=== PATIENT | female | born 1945 | race Caucasian/White ===

== ENCOUNTER → 2019-07-16 15:43 | Outpatient (POV) | payer MEDICARE, OTHER, SELFPAY | PROVIDERS: PCP Nurse Practitioner; Visit Provider Nurse Practitioner Family | DX: Z00.00 Encounter for general adult medical examination without abnormal findings (principal) ==

== ENCOUNTER → 2019-10-02 08:41 | Outpatient (CLI) | payer MEDICARE, OTHER, SELFPAY ==
--- NOTE | 2019-10-02 08:45 | US_ITS ---
PROCEDURE: US ABDOMEN LIMITED CLINICAL INDICATION: N/V RUQ PAIN COMPARISON: RUQ US RUQ-(ABD LTD)1ORGAN/QUAD/FU from 02/15/2017 FINDINGS: PANCREAS: Unremarkable. No obvious mass or abnormal fluid collection. No ductal dilatation a portion of the tail is obscured by bowel gas. LIVER: No focal liver lesions demonstrated. Homogeneous echogenicity. No intrahepatic biliary ductal dilatation evident. There is appropriate direction of blood flow within a non dilated portal vein RIGHT KIDNEY: The right kidney measures 9.5 x 3.7 by 5.2 cm and appears sonographically normal. GALLBLADDER: No gallstones, gallbladder wall thickening, pericholecystic fluid, or biliary dilatation. There is partial septation of the gallbladder near the neck. The common bile duct measures 4 mm. The patient is mildly tender over the right upper quadrant. IMPRESSION: Unremarkable limited abdominal ultrasound as detailed above Dictated by: Dr. Joe Gong MD 10/02/2019 10:[address] Joe Gong MD in [place] 10/02/2019 10:19
== END ==
PROVIDERS: PCP Nurse Practitioner; Visit Provider Nurse Practitioner
DX: R10.11 Right upper quadrant pain (principal); R11.2 Nausea with vomiting, unspecified
CPT/HCPCS: 76705

== ENCOUNTER → 2019-10-17 10:09 | Outpatient (CLI) | payer MEDICARE, OTHER, SELFPAY ==
--- NOTE | 2019-10-17 10:12 | NM_ITS ---
PROCEDURE: NM HEPATOBILIARY W PHARM CLINICAL INDICATION: RUQ PAIN Right upper quadrant pain COMPARISON: No exams were available for comparison TECHNIQUE: DOSE: 8.63 mCi technetium Choletec. 1.1 mcg CCK. No pain reported with CCK infusion. FINDINGS: Homogeneous activity is present within the hepatic parenchyma. Activity is present in the gallbladder by 10 minutes. Activity is present in the small bowel by 20 minutes. The gallbladder ejection fraction is calculated to be 9 percent. CCK-The patient did not report pain or other symptoms during CCK infusion. IMPRESSION: No evidence of common or cystic duct obstruction. Gallbladder ejection fraction is low at 9 percent. Dictated by: Sergio Rodriguez MD 10/18/2019 07:09 Electronically signed by Sergio Rodriguez MD in [place] 10/18/2019 07:09
== END ==
PROVIDERS: PCP Nurse Practitioner; Visit Provider Nurse Practitioner
DX: R10.11 Right upper quadrant pain (principal)
CPT/HCPCS: 78227; A9537; J2805

== ENCOUNTER → 2020-01-10 10:54 | Outpatient (CLI) | payer MEDICARE, OTHER, SELFPAY ==
--- NOTE | 2020-01-10 10:56 | XR_ITS ---
PROCEDURE: XR CHEST AP CLINICAL HISTORY: COUGH COMPARISON: XR CHEST 2V from 10/20/2019 FINDINGS: Mild cardiomegaly without failure. The lungs are clear without infiltrates, suspicious nodules, or pleural effusions. There is a nodular density noted in the left apex medially possibly related to a granuloma. IMPRESSION: Cardiomegaly, no acute finding. Left apical nodule possibly related to a granuloma Dictated by: Sergio Rodriguez MD 01/10/2020 12:35 Electronically signed by Sergio Rodriguez MD in [place] 01/10/2020 12:35
[2020-01-11 18:05] LABS: Covid-19 Nasal PCR Sendout Lex NOT DETECTED
--- NOTE | 2020-01-11 18:38 | PC.NURSE ---
Notified Dr Rojas and patient of negative covid results. Results faxed to [facility].
== END ==
PROVIDERS: Visit Provider Nurse Practitioner Family
DX: R06.02 Shortness of breath (principal); R05 Cough
CPT/HCPCS: 71045

== ENCOUNTER 2020-01-28 12:56 | Emergency (ER) | payer MEDICARE, OTHER, SELFPAY ==
[2020-01-28 12:57] VITALS: BP 154/97; PULSE 85; RESP 18; TEMP 36.8; O2SAT 96; BMI 19.1
--- NOTE | 2020-01-28 12:58 | ECG_ITS ---
APPROVED REPORT Exam: Resting ECG HR:79 bpm ECG Measurements Heart Rate 79 AXES NH 156 P 70 QRSd 78 QRS 32 QT 408 T 21 QTc 467 <Conclusion> Normal sinus rhythm Incomplete RBBB Possible Left atrial enlargement Nonspecific ST and T wave abnormality Abnormal ECG Electronically signed by : Wade Mar, 01/29/2020 14:32:39
--- NOTE | 2020-01-28 13:02 | XR_ITS ---
PROCEDURE: XR CHEST 2V CLINICAL HISTORY: shortness of breath COMPARISON: XR CHEST 2V from 10/20/2019 XR CHEST AP from 01/10/2020 FINDINGS: Mild cardiomegaly without failure. No lobar consolidation or collapse. There is a well-circumscribed 6 mm nodule in the left apex medially which may be due to a granuloma No acute bony abnormalities. IMPRESSION: No acute findings. Dictated by: Sergio Rodriguez MD 01/28/2020 13:37 Electronically signed by Sergio Rodriguez MD in [place] 01/28/2020 13:37
--- NOTE | 2020-01-28 13:06 | HMH.EDSOB ---
ED Disposition Clinical Impression: Anxiety Dyspnea Qualifiers: Dyspnea type: shortness of breath Qualified Code(s): R06.02 - Shortness of breath Disposition: Home, Self-Care Condition on Discharge: Good Instructions: DI for Shortness of Breath, DI for Anxiety -- Adult Referrals: Eros Rojas MD [Primary Care Provider] - 3 days - Critical Care Critical Care Time: No Attestation: On , the high probability of a clinically significant, sudden or life threatening deterioration of the following system(s) required my full and direct attention, intervention and personal management. The time I documented below is in addition to time spent performing reported procedures but includes the following listed in this critical care notation. Medical Decision Making - Medical Records Medical records reviewed: Yes: I reviewed the patient's medical records. - Cezar Inquiry Pt receiving controlled substance: No Vital Signs: 01/28/20 12:57 01/28/20 13:27 Temperature 98.3 F Temperature Source Oral Pulse Rate [Radial] 85 70 Respiratory Rate 18 20 Blood Pressure [Right Arm] 154/97 H 169/91 H Blood Pressure Mean [Right Arm] 116 117 Blood Pressure Source [Right Arm] Automatic Cuff Automatic Cuff Blood Pressure Position [Right Arm] Sitting Supine 02 Sat by Pulse Oximetry 96 95 Oxygen Delivery Method Room Air Room Air - Radiology Data #1 Image(s): Chest Image Reviewed: Yes I reviewed the patient's radiology results, Yes I reviewed the patient's radiology image Preliminary Findings: Normal/NAD - ECG Data Tracing #1 I reviewed this ECG and interpreted as documented below: EKG at 1258 shows a sinus rhythm with a rate of 79. No acute ST segment elevation or depression. No hyperacute T waves. Normal intervals. EKG interpreted by me. Medical Decision Narrative: Patient maintaining oxygen saturations of 99-100% on room air even with a mask on. No respiratory distress. Lung exam is clear with good air movement even at the bases. Chest x-ray shows no signs of pneumonia, pneumothorax, widened mediastinum or florid pulmonary edema. EKG shows no acute findings. No chest pain or hypoxia, very low pretest probability for PE. Discharged home to follow-up with primary care provider in 2 to 3 days for reevaluation. Anxiety could be a component here as well. Resp/SOB HPI - General Chief Complaint: Shortness of Breath/Dyspnea Stated Complaint: SOA Time Seen by Provider: 01/28/20 13:06 Mode of Arrival: Ambulatory Limitations: No Limitations Description of Symptoms (Recalled from ER Triage Doc. by RN): Shortness of breath for a couple of weeks. Denies fever - History of Present Illness This is a 74-year-old female with a past medical history significant for hypertension, hyperlipidemia, anxiety who presents to the emergency department feeling like she is short of breath. She is 99% on room air even with a mask on on my evaluation. She states she feels like she cannot get a deep breath and it has been ongoing for several weeks. She has been prescribed an anxiolytic by her primary care doctor and took one because she thought she might just be feeling anxious, but her symptoms are unchanged. No chest pain. No history of DVT/PE. No exacerbating or alleviating factors. No fevers or cough. Of note, she has a follow-up appointment with Dr. Chau tomorrow for a stress test. - Related Data Home Medications Medication Instructions Recorded Confirmed Omeprazole 20 mg PO DAILY 10/20/19 01/22/20 Ropinirole HCl 0.5 mg PO DAILY 10/20/19 01/22/20 estradioL [Estradiol] 1 patch TD DAILY 10/20/19 01/22/20 Timolol [Betimol] 5 ml OP DAILY 11/02/19 01/22/20 cycloSPORINE [Restasis] 1 each OP DAILY 11/02/19 01/22/20 amlodipine 5 mg-benazepril 10 mg 1 cap PO DAILY cap 01/22/20 01/22/20 capsule hydroxyzine HCl 25 mg tablet 25 mg PO QHS PRN 01/22/20 01/22/20 psyllium husk 0.4 gram capsule 0.4 g PO DAILY 01/22/20 01/22/20
--- NOTE | 2020-01-28 13:18 | PC.NURSE ---
pt went for xray
[2020-01-28 13:27] VITALS: BP 169/91; PULSE 70; RESP 20; O2SAT 95
[2020-01-28 14:09] VITALS: BP 147/85; PULSE 87; RESP 20; TEMP 36.8; O2SAT 98
== END 2020-01-28 14:10 | disposition home or self-care (01) ==
PROVIDERS: Emergency Provider Emergency Medicine; PCP Family Medicine
DX: F41.9 Anxiety disorder, unspecified (principal); I10 Essential (primary) hypertension; E78.5 Hyperlipidemia, unspecified; K21.9 Gastro-esophageal reflux disease without esophagitis; Z90.49 Acquired absence of other specified parts of digestive tract; Z79.899 Other long term (current) drug therapy
CPT/HCPCS: 71046; 93005; 99283

== ENCOUNTER → 2020-01-29 07:15 | Outpatient (CLI) | payer MEDICARE, OTHER, SELFPAY ==
--- NOTE | 2020-01-29 07:16 | CA_ITS ---
APPROVED REPORT Exam: Pharmacologic Technologist: Pallavi Segovia Ht: 5 ft 3 in Wt: 110 lbs BSA: 1.50 m2 HR: 74 bpm BP: 145/75 mmHg Indications: Shortness of Breath, Abnormal EKG Medical History Medications: Amlodipine,,,,, Omeprazole,,,,, Estradiol,,,,, Hydroxyzine,,,,, PSYLLIUM,,,,, Timolol,,,,, Cyclosporine,,,,, Stress Test Details Test: LEXISCAN HR Resting HR: 77 bpm Max Heart Rate (APMHR): 144 bpm Max HR Achieved: 101 bpm Target HR (85% APMHR): 122 bpm % of APMHR: 70 Recovery HR: 88 bpm BP Resting BP: 145.0/75.0 mmHg Max BP: 153.0/78.0 mmHg Recovery BP: 148.0/75.0 mmHg ECG Clinical Exercise duration: 04:16 min Highest Stage Achieved: Exercise capacity: 1.0 METs Stress ECG Conclusion Resting ECG: Sinus rhythm Lexiscan portion completed. Patient denied any complaints during peak infusion. Symptoms: No chest pain. No shortness of breath. No nausea or vomiting. Arrhythmias/Ectopy: Occasional PAC ST-T Changes: Less than 1.[address] depression. Conclusion: Images to follow. Test Summary REST 07:53 . . 77 . 145/ 75 . . Stage 1 . . . . . . . Myoview Injected Stage 1 01:00 . . 101 . . . . Stage 2 01:00 . . 100 . . . . Stage 3 01:00 . . 96 . 153/ 78 . . Stage 4 01:00 . . 95 . 143/ 77 . . Stage 4 01:16 . . 95 . 139/ 72 . Stop exercise at 04:16 RECOVERY 01:00 . . 95 . 126/ 68 . . RECOVERY 02:00 . . 90 . 126/ 68 . . RECOVERY 03:00 . . 91 . 153/ 75 . . RECOVERY 03:46 . . 88 . 148/ 75 . . Electronically signed by : Han Sanders, 01/29/2020 20:36:40
--- NOTE | 2020-01-29 07:16 | CA_ITS ---
APPROVED REPORT EXAM: Comprehensive 2D, Doppler, and color-flow Echocardiogram Patient Transition Specialist: Bonita Caraballo RVT Ht: 5 ft 3 in Wt: 109lbs BSA: 1.49 BP: 128/85 mmHg Indications: Shortness of Breath, Hypertension,Abn EKG,Tachycardia,CROSS 2D Dimensions LVOT 1.39 cm (M/F) 1.5-2.5 M-Mode Dimensions RVDd 1.60 cm (0.9-2.6) LVDd 4.67 cm (3.5-5.7) LVDs 3.52 cm (3.5-5.7) IVSd 1.12 cm (0.6-1.1) PWd 0.69 cm (0.6-1.1) EF (Teich) 48.80% FS 24.60% EDV (Teich) 100.80 mL ESV (Teich) 51.60 mL LV Diastology E/A Ratio 0.61 Mitral Valve MV A Velocity 89.00 (40-130 cm/s) Left Ventricle Left atrium is mildly enlarged, left ventricle is normal size, mild concentric left ventricular hypertrophy, visually estimated ejection fraction 55 to 60% with no regional wall motion abnormality, grade 1 diastolic dysfunction seen without tissue Doppler evidence of raise left atrial pressure. Right Ventricle Right atrium and right ventricular normal size and contractility. Aortic Valve Aortic valve is minimally thickened and fibrosed, there is no aortic stenosis or aortic insufficiency. Mitral Valve Mitral valve leaflets are minimally thickened, there is mild to moderate mitral regurgitation. Tricuspid Valve Tricuspid valve grossly normal, there is mild tricuspid regurgitation, tricuspid regurgitation jet velocity is inadequate for calculation of the right ventricular systolic pressure. Pulmonic Valve Pulmonic valve is poorly visualized. Great Vessels Aortic root is normal size. Pericardium No significant pericardial effusion noted. Conclusion 1. Normal left ventricular size, mild concentric left ventricular hypertrophy, visually estimated ejection fraction 55% with no regional wall motion abnormality, grade 1 diastolic dysfunction seen without tissue Doppler evidence of raise left atrial pressure. 2. Mild to moderate mitral and mild tricuspid regurgitation. 3. No significant pericardial effusion noted. Electronically signed by : Han Sanders, 01/29/2020 20:51:52
--- NOTE | 2020-01-29 07:16 | NM_ITS ---
APPROVED REPORT Exam: Nuclear Stress Test Indication: htn, sob, palpitations, fatigue Patient Location: Outpatient Stress Tech: Pallavi Segovia IN Tech:Joyce CarrilloWILLIAMS RT(R)(N) Ht: 5 ft 3 in Wt: 110 lbs Bra Size: b HR: 74 bpm BP: 145/75 mmHg BSA: 1.50 m2 BMI: 19.4 History: htn, sob, palpitations, fatigue Procedure: Patient received a 0.4 mg of intravenous Lexiscan, resting heart rate 74 bpm, resting blood pressure 145/75 mmHg, with Lexiscan maximum heart rate achived was 99 bpm which is Less than 85 % of the maximum predicted heart rate and blood pressure was 153/78 mmHg. With Lexiscan, patient denied any complaint of chest pain. Electrocardiogram Resting electrocardiogram shows sinus rhythm, with Lexiscan there is less than 1.[address] segment depression noted from the baseline EKG. The EKG portion of the Lexiscan Myoview is nondiagnostic. Cardiac Stress and Resting SPECT Images: Cardiac Stress and Resting SPECT images were obtained using technetium 99m Myoview 32.5 mCi stress and 10.52 mCi at rest. Gated SPECT for analysis of segmental wall motion and calculation of the ejection fraction also done. Cardiac stress and resting SPECT images show uniform myocardial activity without segmental perfusion abnormality, computer derived ejection fraction is over 65% with no regional wall motion abnormality, right ventricle is normal size and contractility. Conclusion: 1. The EKG portion of the Lexiscan Myoview is nondiagnostic. 2. No scintigraphic evidence of reversible ischemia seen, computer derived ejection fraction is over 65% with no regional wall motion abnormality, right ventricle is normal size and contractility. 3. Normal Lexiscan Myoview study. Electronically signed by : Han Sanders, 01/29/2020 20:38:40
--- NOTE | 2020-01-29 09:41 | HMH.ITSHM ---
Current Home Medications as stated by this patient Zoraida Palafox or pharmaceutical specialty representative. ropinrole, estradiol, miralax, omeprazole, inhaler, alprazolam
== END ==
PROVIDERS: PCP Nurse Practitioner; Visit Provider Urology
DX: F41.9 Anxiety disorder, unspecified (principal); R00.0 Tachycardia, unspecified; R06.02 Shortness of breath; R94.31 Abnormal electrocardiogram [ECG] [EKG]
CPT/HCPCS: 78452; 93017; 93306; A9502; J2785

== ENCOUNTER → 2020-02-01 12:59 | Outpatient (CLI) | payer MEDICARE, OTHER, SELFPAY ==
--- NOTE | 2020-02-01 13:48 | CT_ITS ---
PROCEDURE: CT CHEST WO CON CLINICAL INDICATION: SOB Shortness of breath, shortness of air COMPARISON: CT ABDOMEN PELVIS W CON from 10/20/2019 XR CHEST 2V from 01/28/2020 TECHNIQUE: Axial images obtained with sagittal and coronal reformats. All CT scans at the facility use one or more dose reduction, viz: automated exposure control, ma/kV adjustment per patient size (including targeted exams where dose is matched to indication, i.e. head), or iterative reconstruction technique. FINDINGS: HEART AND MEDIASTINAL STRUCTURES: There is mild tortuosity/ectasia of the ascending aorta. Normal heart size. There is minimal thickening of the pericardium. No mediastinal or hilar mass. There are few small mediastinal lymph nodes but no dominant adenopathy. There is mild thickening of the distal esophagus nonspecific but could be seen with esophagitis. There are few calcified hilar nodes in some small paraesophageal calcified nodes inferiorly. LUNGS AND PLEURAL SPACES: There is an 8 mm left apical nodule. This may contain a small focus of calcification peripherally. Right apical pleural thickening is noted. There are a few scattered small 3-4 mm parenchymal and subpleural nodular opacities in both upper and lower lobes. These are nonspecific too small to categorize. No effusions or infiltrates. No central obstructing lesions. There is a subpleural 6 mm nodule in the right lower lobe posteriorly. BONY STRUCTURES: No acute bony abnormalities apparent. UPPER ABDOMEN: Unremarkable. ADDITIONAL FINDINGS: No other significant abnormalities. IMPRESSION: 1. There are scattered bilateral pulmonary nodules the largest in the left apex at 8 mm. These are nonspecific and may be infectious or inflammatory such is old granulomas. Cannot exclude the possibility of neoplasm/metastatic disease. Suggest 3 month follow-up without and with contrast. 2. Mild thickening of the distal esophagus which may be seen with soft guidance. Dictated by: Sergio Rodriguez MD 02/02/2020 09:37 Electronically signed by Sergio Rodriguez MD in [place] 02/02/2020 09:37
== END ==
PROVIDERS: PCP Family Medicine; Visit Provider Nurse Practitioner Family
DX: R06.02 Shortness of breath (principal)
CPT/HCPCS: 71250; 94060

== ENCOUNTER → 2020-05-20 10:27 | Outpatient (POV) | payer MEDICARE, OTHER, SELFPAY | PROVIDERS: Visit Provider Dermatology | DX: Z00.00 Encounter for general adult medical examination without abnormal findings (principal) ==

== ENCOUNTER → 2020-05-26 09:24 | Outpatient (CLI) | payer MEDICARE, OTHER, SELFPAY ==
--- NOTE | 2020-05-26 09:27 | CT_ITS ---
PROCEDURE: CT CHEST W CON CLINCAL INDICATION: PULMONARY NODULES Follow-up pulmonary nodules COMPARISON: CT CT CHEST WO CON from 02/01/2020 TECHNIQUE: IV Contrast: 75ml Optiray 350 Axial images obtained with sagittal and coronal reformats. All CT scans at the facility use one or more dose reduction, viz: automated exposure control, ma/kV adjustment per patient size (including targeted exams where dose is matched to indication, i.e. head), or iterative reconstruction technique. FINDINGS: HEART AND MEDIASTINAL STRUCTURES: No mediastinal or hilar mass or adenopathy. There is a small amount fluid in the pericardium along the heart base on the right and posteriorly. LUNGS AND PLEURAL SPACES: Left apical nodule measuring 8 mm is once again noted and not significantly changed. There is biapical pleural thickening which is unchanged. Scattered small subpleural and parenchymal nodules once again noted in both lungs not significantly changed. No lobar consolidation or collapse. No new nodules evident. BONY STRUCTURES: No acute bony abnormalities apparent. UPPER ABDOMEN: There is mild nonspecific thickening of the distal esophagus. ADDITIONAL FINDINGS: No other significant abnormalities. IMPRESSION: 1. Stable appearance of the chest with stable appearing pulmonary nodules. Annual follow-up recommended. 2. Other nonacute findings as described above. Dictated by: Sergio Rodriguez MD 05/27/2020 12:08 Sergio Rodriguez MD in [place] 05/27/2020 12:08
[2020-05-26 09:51] LABS: Blood Urea Nitrogen 10 mg/dl (7-17); Estimated Glomerular Filt Rate 70 ml/min (>60); GFR (African American) 84 ML/MIN (>60)
== END ==
PROVIDERS: PCP Nurse Practitioner Family; Visit Provider Nurse Practitioner Family
DX: R91.8 Other nonspecific abnormal finding of lung field (principal)
CPT/HCPCS: 36415; 71260; 82565; 84520; Q9967

== ENCOUNTER → 2020-06-03 08:59 | Outpatient (POV) | payer MEDICARE, OTHER, SELFPAY | PROVIDERS: Visit Provider Otolaryngology | DX: Z00.00 Encounter for general adult medical examination without abnormal findings (principal) ==

== ENCOUNTER → 2020-06-10 10:08 | Outpatient (POV) | payer MEDICARE, OTHER, SELFPAY | PROVIDERS: Visit Provider Dermatology | DX: Z00.00 Encounter for general adult medical examination without abnormal findings (principal) ==

== ENCOUNTER → 2020-07-21 13:26 | Outpatient (POV) | payer MEDICARE, OTHER, SELFPAY | PROVIDERS: Visit Provider Nurse Practitioner Family | DX: Z00.00 Encounter for general adult medical examination without abnormal findings (principal) ==

== ENCOUNTER → 2021-03-05 09:52 | Outpatient (CLI) | payer MEDICARE, OTHER, SELFPAY ==
--- NOTE | 2021-03-05 09:53 | CA_ITS ---
APPROVED REPORT EXAM: Comprehensive 2D, Doppler, and color-flow Echocardiogram [place] [employer] Machine Operator: Bonita Caraballo RVT Ht: 5 ft 3 in Wt: 119lbs BSA: 1.55 BP: 184/86 mmHg Indications: MURMUR,GERD,HTN,MILD-MOD MR 2D Dimensions LVOT 1.70 cm (M/F) 1.5-2.5 LA Volume 22.60 mL LA Volume Index 14.58 mL/m2 (M/F) 16-34 M-Mode Dimensions RVDd 2.19 cm (0.9-2.6) LA Diam 3.42 cm (1.9-4.0) LVDd 4.45 cm (3.5-5.7) Ao Diam 2.39 cm (2.0-3.7) LVDs 2.91 cm (3.5-5.7) IVSd 0.78 cm (0.6-1.1) PWd 0.47 cm (0.6-1.1) EF (Teich) 63.90% FS 34.60% EDV (Teich) 90.10 mL TAPSE 2.36 (<1.7) ESV (Teich) 32.50 mL LV Diastology E Decel Time 267.00 (160-240 msec) E/A Ratio 1.0 MED E' 8.90 (< 7 cm/sec) E'/MED E' Ratio 12.22 (>14) LAT E' 7.70 (<10 cm/sec) E/LAT E' Ratio 14.13 (>14) Mitral Valve MV E Max Giorgio. 109.00 (40-130 cm/s) MV A Velocity 113.00 (40-130 cm/s) E/A Ratio 0.96 MV Decel. Time 267.00 (160-240 ms) MV PHT 78.00 ms Pulmonary Valve PV Peak Velocity 80.00 (50-150 cm/s) Tricuspid Valve TR P. Velocity 321.00 cm/s RAP Estimate 10.00 mmHg RVSP 51.20 mmHg Left Ventricle Enlarged, left ventricle is normal size, mild concentric left ventricular hypertrophy, visually estimated ejection fraction 55% with no regional wall motion abnormality, grade 1 diastolic dysfunction seen without tissue Doppler evidence of raise left atrial pressure. Right Ventricle Right atrium and right ventricle are normal size and contractility. Aortic Valve Aortic valve is minimally thickened and calcified, there is no aortic stenosis or aortic insufficiency. Mitral Valve Mitral valve leaflets are minimally thickened, there is mild to moderate mitral regurgitation. Tricuspid Valve Tricuspid grossly normal, there is mild tricuspid regurgitation, tricuspid regurgitation jet velocity is inadequate for calculation of the right ventricular systolic pressure. Pulmonic Valve Pulmonic valve is poorly visualized. Great Vessels Aortic root is normal size. Pericardium No significant pericardial effusion noted. Conclusion 1. Mildly enlarged left atrium, normal left ventricular size, mild concentric left ventricular hypertrophy, visually estimated ejection fraction 55% with no regional wall motion abnormality, grade 1 diastolic dysfunction seen without tissue Doppler evidence of raise left atrial pressure. 2. Mild to moderate mitral and mild tricuspid regurgitation. 3. No significant pericardial effusion noted. Electronically signed by : Han Sanders, 03/05/2021 16:13:46
== END ==
PROVIDERS: PCP Nurse Practitioner Family; Visit Provider Nurse Practitioner Family
DX: I34.0 Nonrheumatic mitral (valve) insufficiency (principal)
CPT/HCPCS: 93306

== ENCOUNTER → 2021-09-10 09:22 | Outpatient (CLI) | payer MEDICARE, OTHER, SELFPAY | PROVIDERS: PCP Family Medicine; Visit Provider Nurse Practitioner | DX: U07.1 COVID-19 (principal) | CPT/HCPCS: C9803; U0003; U0005 ==

== ENCOUNTER 2021-09-18 08:55 | Outpatient (CLI) | payer MEDICARE, OTHER, SELFPAY ==
[2021-09-18] VITALS (9 sets, daily range): BP systolic 144–170; BP diastolic 68–89; PULSE 60–68; RESP 16–18; TEMP 36.5–36.9; O2SAT 97–100
== END 2021-09-18 11:45 | disposition home or self-care (01) ==
LOC: INF 08:56
PROVIDERS: PCP Family Medicine; Visit Provider Family Medicine
DX: U07.1 COVID-19 (principal); Z23 Encounter for immunization
CPT/HCPCS: 96365

== ENCOUNTER → 2022-08-06 10:13 | Outpatient (CLI) | payer MEDICARE, OTHER, SELFPAY ==
--- NOTE | 2022-08-06 10:16 | CT_ITS ---
FINAL REPORT TECHNIQUE: Axial CT images of the abdomen were obtained with IV contrast only. Coronal reformatted images were also obtained. This study was performed with techniques to keep radiation doses as low as reasonably achievable (ALARA). Individualized dose reduction techniques using automated exposure control or adjustment of mA and/or kV according to the patient''s size were employed. CLINICAL HISTORY: NAUSEA,DECREASED APPETITE FINDINGS: There is mild bibasilar atelectasis or scar. There is a less than 1 cm cyst in the posterior right hepatic lobe. The patient is status post cholecystectomy. There is no evidence of biliary ductal dilatation. There is wall thickening at the GE junction which is nonspecific. The pancreas appears normal. The spleen size is within normal limits. There is no evidence of renal mass or hydronephrosis. There is no evidence of adenopathy. No abnormal fluid collection is seen. No localized inflammatory processes identified. The appendix is normal. IMPRESSION: Nonspecific wall thickening at the GE junction. This could be further evaluated with upper endoscopy. He Reviewed, Interpreted and Dictated by Edison Mcgarry III, MD Transcribed by Aurelia Kim Authenticated and [facility]
== END ==
PROVIDERS: PCP Nurse Practitioner Family; Visit Provider Nurse Practitioner Family
DX: R11.0 Nausea (principal); R63.0 Anorexia
CPT/HCPCS: 74160; Q9967

== ENCOUNTER → 2023-03-24 17:35 | Outpatient (CLI) | payer MEDICARE, OTHER, SELFPAY ==
[2023-03-24 19:01] LABS: Adenovirus F 40/41, stool Not Detected (NotDetected); Astrovirus Not Detected (NotDetected); Campylobacter Not Detected (NotDetected); Clostridium Difficile A/B, PCR Not Detected (NotDetected); Cryptosporidium Not Detected (NotDetected); Cyclospora Cayetanesis Not Detected (NotDetected); Entamoeba histolytica Not Detected (NotDetected); Enteroaggregative E coli Not Detected (NotDetected); Enteropathogenic E coli Not Detected (NotDetected); Enterotoxigenic E coli Not Detected (NotDetected); Giardia lamblia Not Detected (NotDetected); Norovirus Not Detected (NotDetected); Plesimonas Shigalloides, PCR Not Detected (NotDetected); Rotavirus A Not Detected (NotDetected); Salmonella, PCR Not Detected (NotDetected); Sapovirus Not Detected (NotDetected); Shiga-like toxin E coli Not Detected (NotDetected); Shigella Enterovasive E coli Not Detected (NotDetected); Vibrio Cholerae Not Detected (NotDetected); Vibrio, PCR Not Detected (NotDetected); Yersinia Entercolitica, PCR Not Detected (NotDetected)
== END ==
PROVIDERS: PCP Nurse Practitioner Family; Visit Provider Nurse Practitioner Family
DX: R19.7 Diarrhea, unspecified (principal)
CPT/HCPCS: 87507

== ENCOUNTER → 2023-03-29 14:06 | Outpatient (POV) | payer MEDICARE, OTHER, SELFPAY | PROVIDERS: Visit Provider Dermatology | DX: Z00.00 Encounter for general adult medical examination without abnormal findings (principal) ==

== ENCOUNTER → 2023-05-10 14:00 | Outpatient (POV) | payer MEDICARE, OTHER, SELFPAY | PROVIDERS: Visit Provider Dermatology | DX: Z00.00 Encounter for general adult medical examination without abnormal findings (principal) ==

== ENCOUNTER 2023-12-06 09:08 | Outpatient (CLI) | payer MEDICARE, OTHER, SELFPAY ==
--- NOTE | 2023-12-06 09:13 | XR_ITS ---
FINAL REPORT TECHNIQUE: Bone mineral density was calculated of the lumbar spine and hip. CLINICAL HISTORY: OSTEOPENIA COMPARISON: None FINDINGS: Using L1-4, the bone mineral density of the spine is 0.905 g/cm2, corresponding to T-score of -1.3. Using the left hip, the bone mineral density of the femoral neck is 0.75 g/cm2, corresponding to a T-score of -0.9. Using the right hip, the bone mineral density of the femoral neck is 0.714 g/cm?, corresponding to a T-score of -1.2. NOTE: T-score: Standard deviation compared with peak bone mass of young adult mean. *Following the recommendations of the International Society of Bone densitometry, classification of hip BMD is based on the lower of two T-scores; total hip or femoral neck. IMPRESSION: Diminished bone mineral density of the lumbar spine and bilateral hips consistent with low bone density. Reviewed, Interpreted and Dictated by Edison Mcgarry III, MD Transcribed by Shanna Barnett Authenticated and [facility]
== END 2023-12-06 23:59 ==
PROVIDERS: PCP Nurse Practitioner Family; Visit Provider Obstetrics & Gynecology
DX: Z78.0 Asymptomatic menopausal state (principal); M85.89 Other specified disorders of bone density and structure, multiple sites; E28.319 Asymptomatic premature menopause
CPT/HCPCS: 77080

== ENCOUNTER 2024-04-17 12:45 | Outpatient (CLI) | payer MEDICARE, OTHER, SELFPAY ==
--- NOTE | 2024-04-17 12:45 | CA_ITS ---
APPROVED REPORT EXAM: Comprehensive 2D, Doppler, and color-flow Echocardiogram Enchilada Maker: Italia Hauser CRT Ht: 5 ft 3 in Wt: 136lbs BSA: 1.64 BP: 190/90 mmHg Indications: Peripheral Edema, Hypertension/HDD, mr 2D Dimensions Left Atrium 3.25 cm LA Volume 34.60 mL LVOT 1.78 cm (M/F) 1.5-2.5 LA Volume Index 21.10 mL/m2 (M/F) 16-34 EF AP4 65.60 % GL Strain -27.2 % M-Mode Dimensions RVDd 2.47 cm (0.9-2.6) LVDd 4.95 cm (3.5-5.7) Ao Diam 3.68 cm (2.0-3.7) LVDs 3.47 cm (3.5-5.7) IVSd 0.88 cm (0.6-1.1) PWd 0.59 cm (0.6-1.1) EF (Teich) 56.90% FS 29.90% EDV (Teich) 115.50 mL TAPSE 2.40 (<1.7) ESV (Teich) 49.80 mL LV Diastology E Decel Time 197 (160-240 msec) E/A Ratio 0.72 MED E' 9.9 (>= 7 cm/sec) MED A' 15.50 cm/s E'/MED E' Ratio 9.19 (<= 14) LAT E' 8.5 (>= 10 cm/sec) LAT A' 12.60 cm/s E/LAT E' Ratio 10.71 (<= 14) Aortic Valve AoV Peak Giorgio. 137.0 (50-130 cm/s) AO Peak GR. 7.50 mmHg Mitral Valve MV E Max Giorgio. 91.0 (40-130 cm/s) MV A Velocity 126.0 (40-130 cm/s) E/A Ratio 0.72 MV Decel. Time 197 (160-240 ms) Tricuspid Valve TR P. Velocity 342.00 cm/s RAP Estimate 10.00 mmHg RVSP 56.90 mmHg Left Ventricle The left ventricle is normal size. The left ventricular systolic function is normal. The left ventricular ejection fraction is within the normal range. There is increased LV wall thickness. There is normal LV segmental wall motion. Transmitral Doppler flow pattern suggests impaired LV relaxation. LVEF is 55%. Right Ventricle Right ventricle is mildly dilated. The right ventricular systolic function is normal. Atria The left atrium is mildly dilated. The right atrium is mildly dilated. There is no Doppler evidence of interatrial shunt. Aortic Valve The aortic valve is mildly thickened. There is no aortic valvular stenosis. No aortic regurgitation is present. Mitral Valve The mitral valve leaflets are mildly thickened. Mild mitral regurgitation. No evidence of mitral valve stenosis. Tricuspid Valve The tricuspid valve leaflets are thin and pliable. Mild tricuspid regurgitation. RVSP is 30-35 mmHg. Pulmonic Valve The pulmonary valve is normal in structure. Trace pulmonic regurgitation. Great Vessels The aortic root is normal in size. The ascending aorta is normal in size. IVC is normal in size and collapses >50% with inspiration. Pericardium There is no pericardial effusion. Other Information Study Quality: Fair Conclusion Normal biventricular systolic function. Mild RV dilation. Mild biatrial dilation. Mild MR, mild TR. RVSP is 30-35 mmHg. Electronically signed by : Nancy Morales MD 04/22/2024 01:33:06
== END 2024-04-17 23:59 | disposition home or self-care (01) ==
LOC: RT 12:45
PROVIDERS: PCP Nurse Practitioner Family; Visit Provider Internal Medicine
DX: I34.0 Nonrheumatic mitral (valve) insufficiency (principal)
CPT/HCPCS: 93306

== ENCOUNTER 2024-07-16 16:21 | Outpatient (CLI) | payer MEDICARE, OTHER, SELFPAY ==
[2024-07-16 16:35] LABS: Basophils % 0.6 % (0.1-2.0); Eosinophils # 0.1 K/mm3 (0.0-0.4); Eosinophils % 1.2 % (0.1-12.0); Hematocrit 37.1 % (37.0-47.0); Hemoglobin 14.6 g/dL (12.2-16.2); Lymphocytes # 1.3 K/mm3 (0.7-4.5); Lymphocytes % 18.5 % (10-50); Mean Corpuscular HGB Conc 39.4 g/dL (31.8-35.4); Mean Corpuscular Hemoglobin 36.6 pg (27.0-31.2); Mean Corpuscular Volume 92.9 fl (81-99); Mean Platelet Volume 9.2 fl (7.4-10.4); Monocytes # 0.4 K/mm3 (0.1-1.0); Monocytes % 5.5 % (1.7-9.3); Neutrophils # 5.2 K/mm3 (1.8-7.8); Neutrophils % 74.1 % (37.0-80.0); Platelet Count 279 K/mm3 (142-424); Red Blood Count 3.99 M/mm3 (4.20-5.40); Red Cell Distribution Width 13.8 % (11.5-17.5)
[2024-07-16 17:12] LABS: Albumin Level 4.6 g/dl (3.5-5.0); Chloride 102 mmol/L (98-107); Potassium 4.5 mmoL/L (3.5-5.1)
[2024-07-16 17:14] LABS: Alanine Aminotransferase 15 U/L (12-78); Aspartate Amino Transferase 25 U/L (14-36); Blood Urea Nitrogen 13 mg/dl (7-17); Carbon Dioxide 27 mmol/L (22.0-30.0); Estimated Glomerular Filt Rate 48 ml/min (>60); GFR (African American) 58 ML/MIN (>60)
[2024-07-16 17:15] LABS: Albumin/Globulin Ratio 1.4 (1.1-1.8); Alkaline Phosphatase 106 U/L (38-126); Bilirubin,Total 0.7 mg/dl (0.2-1.3); Globulin 3.2 g/dL (1.3-3.2); Glucose 116 mg/dl (74-100); Total Protein,Serum 7.8 g/dl (6.3-8.2)
[2024-07-16 17:27] LABS: Anion Gap 13.5 mEq/L (5-15); Sodium 138 mmol/L (136-145)
[2024-07-16 18:10] LABS: Vitamin B12 209 pg/mL (239-931)
[2024-07-17 03:32] LABS: Thyroid Stimulating Hormone 1.46 uIU/mL (0.465-4.68)
== END 2024-07-16 23:59 | disposition home or self-care (01) ==
LOC: LAB.DROPOF 16:24
PROVIDERS: PCP Nurse Practitioner Family; Visit Provider Nurse Practitioner Family
DX: R29.898 Other symptoms and signs involving the musculoskeletal system (principal); D64.9 Anemia, unspecified; R00.0 Tachycardia, unspecified; M62.838 Other muscle spasm; R53.83 Other fatigue
CPT/HCPCS: 80053; 82607; 82728; 83735; 84443; 85025

== ENCOUNTER 2024-07-23 12:29 | Outpatient (CLI) | payer MEDICARE, OTHER, SELFPAY | END 2024-07-23 23:59 | disposition home or self-care (01) | LOC: RT 12:30 | PROVIDERS: PCP Nurse Practitioner Family; Visit Provider Nurse Practitioner Family | DX: I73.9 Peripheral vascular disease, unspecified (principal) | CPT/HCPCS: 93925 ==

== ENCOUNTER 2024-09-14 09:49 | Outpatient (CLI) | payer MEDICARE, OTHER, SELFPAY ==
[2024-09-14 13:03] LABS: Albumin Level 4.3 g/dl (3.5-5.0); Chloride 105 mmol/L (98-107); Sodium 140 mmol/L (136-145)
[2024-09-14 13:04] LABS: Potassium 4.7 mmoL/L (3.5-5.1)
[2024-09-14 13:06] LABS: Alanine Aminotransferase 15 U/L (12-78); Albumin/Globulin Ratio 1.5 (1.1-1.8); Alkaline Phosphatase 88 U/L (38-126); Anion Gap 11.7 mEq/L (5-15); Aspartate Amino Transferase 26 U/L (14-36); Bilirubin,Total 0.6 mg/dl (0.2-1.3); Blood Urea Nitrogen 14 mg/dl (7-17); Carbon Dioxide 28 mmol/L (22.0-30.0); Estimated Glomerular Filt Rate 53 ml/min (>60); GFR (African American) 64 ML/MIN (>60); Globulin 2.8 g/dL (1.3-3.2); Total Protein,Serum 7.1 g/dl (6.3-8.2)
[2024-09-14 13:07] LABS: Calcium 9.9 mg/dl (8.4-10.2); Glucose 101 mg/dl (74-100); Magnesium 1.9 mg/dl (1.6-2.3)
[2024-09-14 14:44] LABS: Vitamin B12 > 1000 pg/mL (239-931)
== END 2024-09-14 23:59 | disposition home or self-care (01) ==
LOC: LAB.DROPOF 09-17 08:56
PROVIDERS: PCP Nurse Practitioner Family; Visit Provider Nurse Practitioner Family
DX: I10 Essential (primary) hypertension (principal); E53.8 Deficiency of other specified B group vitamins; M62.838 Other muscle spasm; L98.9 Disorder of the skin and subcutaneous tissue, unspecified
CPT/HCPCS: 80053; 82607; 83735; 86340

== ENCOUNTER 2024-09-17 13:59 | Outpatient (CLI) | payer MEDICARE, OTHER, SELFPAY | END 2024-09-17 23:59 | disposition home or self-care (01) | LOC: RAD 14:00 | PROVIDERS: PCP Nurse Practitioner Family; Visit Provider Nurse Practitioner Family | DX: Z12.31 Encounter for screening mammogram for malignant neoplasm of breast (principal) ==

== ENCOUNTER 2024-10-16 13:43 | Outpatient (CLI) | payer MEDICARE, OTHER, SELFPAY ==
--- NOTE | 2024-10-16 13:44 | MM_ITS ---
PROCEDURE INFORMATION: Exam: US Left Breast, Complete MG Left Diagnostic Breast Tomosynthesis Exam date and time: 10/16/2024 1:34 PM Age: 79 years old Clinical indication: Callback from screening mammogram for findings in the left breast. TECHNIQUE: Imaging protocol: Complete ultrasound of all four quadrants of the left breast and the retroareolar regions, including ultrasound of the axilla when performed. Left Diagnostic tomosynthesis and 2D mammography including computer-aided detection (CAD) when performed. Unilateral or bilateral exam. COMPARISON: 1. MG SCREENING CAS[facility]A MAMMOGRAM 08/21/2024 2:57 PM 2. MG SCREENING [facility] MAMMOGRAM 06/28/2023 2:22 PM FINDINGS: MAMMOGRAPHY: Breast composition: The breast is heterogeneously dense, which may obscure small masses. Breast mammogram findings: Magnification views of the left breast demonstrate linear calcifications measuring 3.6 cm in AP dimension in the upper inner quadrant of the left breast, posterior depth. These are indeterminate and stereotactic biopsy is recommended. Spot compression views of the retroareolar aspect of the left breast demonstrates nipple retraction without underlying mass, distortion, or other abnormality. ULTRASOUND: Breast ultrasound findings: Ultrasound of the left breast is performed. There are scattered cystic changes throughout the breast without suspicious mass, shadowing, or distortion. In the retroareolar aspect, there is no underlying mass to account for the nipple retraction. There is no adenopathy by size or morphologic criteria. IMPRESSION: 1. Indeterminate calcifications in the left upper inner quadrant, stereotactic biopsy is recommended. 2. Nipple retraction in the left breast with no underlying mass. Six-month follow-up diagnostic mammogram and ultrasound recommended. ASSESSMENT: BI-RADS Category 4: Suspicious.
== END 2024-10-16 23:59 | disposition home or self-care (01) ==
LOC: RAD 13:44
PROVIDERS: PCP Orthopaedic Surgery; Visit Provider Nurse Practitioner Family
DX: R92.8 Other abnormal and inconclusive findings on diagnostic imaging of breast (principal)
CPT/HCPCS: 76641; 77061; 77065; G0279

== ENCOUNTER 2024-11-23 08:23 | Outpatient (CLI) | payer MEDICARE, OTHER, SELFPAY ==
[2024-11-23] MEDS: ALPRAZolam 0.5MG TABLET 0.5 MG PO (09:00)
[2024-11-23] MEDS: HYDROCODONE/APAP 5/325 MG TABLET 1 TAB PO (09:09)
--- NOTE | 2024-11-23 09:29 | MM_ITS ---
PROCEDURE INFORMATION: Exam: MG Left Diagnostic Breast Tomosynthesis Exam date and time: 11/23/2024 9:30 AM Age: 79 years old Clinical indication: Patient recalled on the basis of a screening mammogram for further evaluation; Left breast; calcifications TECHNIQUE: Imaging protocol: Left Diagnostic tomosynthesis and 2D mammography including computer-aided detection (CAD) when performed. Unilateral or bilateral exam. COMPARISON: 1. MG MM DIG MAMM DX UNILAT LT CAD 10/16/2024 1:34 PM 2. MG SCREENING [facility] MAMMOGRAM 08/21/2024 2:57 PM FINDINGS: MAMMOGRAPHY: Breast composition: The breasts are heterogeneously dense, which may obscure small masses. Breast mammogram findings: Digital diagnostic spot compression views of the left breast do not demonstrate any focal mass or asymmetry. Again noted within the spot compression views are clustered indeterminate microcalcifications unchanged compared to magnification views performed proximally 1 month earlier. By report, biopsy was not done. IMPRESSION: Indeterminate calcifications in the left breast. Biopsy was not performed. In the absence of stereotactic biopsy the alternatives include surgical excision versus a six-month follow-up diagnostic left mammogram with magnification views to assess for any potential interval change. Given that the calcifications remain radiographically indeterminate, biopsy still remains the next step of choice. ASSESSMENT: BI-RADS Category 4: Suspicious.
== END 2024-11-23 23:59 | disposition home or self-care (01) ==
LOC: RAD 08:25
PROVIDERS: PCP Nurse Practitioner Family; Visit Provider Nurse Practitioner Family
DX: R92.8 Other abnormal and inconclusive findings on diagnostic imaging of breast (principal)
CPT/HCPCS: 77061; 77065; G0279

== ENCOUNTER 2024-12-24 11:48 | Outpatient (CLI) | payer MEDICARE, OTHER, SELFPAY ==
[2024-12-24 13:19] LABS: Basophils % 0.7 % (0.1-2.0); Eosinophils # 0.2 K/mm3 (0.0-0.4); Eosinophils % 4.3 % (0.1-12.0); Hematocrit 41.9 % (37.0-47.0); Hemoglobin 13.7 g/dL (12.2-16.2); Lymphocytes # 1.3 K/mm3 (0.7-4.5); Lymphocytes % 23.3 % (10-50); Mean Corpuscular HGB Conc 32.7 g/dL (31.8-35.4); Mean Corpuscular Hemoglobin 30.7 pg (27.0-31.2); Mean Corpuscular Volume 93.9 fl (81-99); Mean Platelet Volume 10.9 fl (7.4-10.4); Monocytes # 0.4 K/mm3 (0.1-1.0); Monocytes % 7.8 % (1.7-9.3); Neutrophils # 3.4 K/mm3 (1.8-7.8); Neutrophils % 63.7 % (37.0-80.0); Platelet Count 307 K/mm3 (142-424); Red Blood Count 4.46 M/mm3 (4.20-5.40); Red Cell Distribution Width 12.5 % (11.5-17.5); White Blood Count 5.4 K/mm3 (4.8-10.8)
[2024-12-24 13:52] LABS: Alanine Aminotransferase 25 U/L (12-78); Albumin Level 4.8 g/dl (3.5-5.0); Albumin/Globulin Ratio 1.6 (1.1-1.8); Alkaline Phosphatase 83 U/L (38-126); Anion Gap 7.6 mEq/L (5-15); Aspartate Amino Transferase 38 U/L (14-36); Bilirubin,Total 0.7 mg/dl (0.2-1.3); Blood Urea Nitrogen 13 mg/dl (7-17); Calcium 11.3 mg/dl (8.4-10.2); Carbon Dioxide 34 mmol/L (22.0-30.0); Chloride 103 mmol/L (98-107); Estimated Glomerular Filt Rate 53 ml/min (>60); GFR (African American) 64 ML/MIN (>60); Glucose 104 mg/dl (74-100); Potassium 4.6 mmoL/L (3.5-5.1); Sodium 140 mmol/L (136-145); Total Protein,Serum 7.8 g/dl (6.3-8.2)
[2024-12-25 15:41] LABS: Intact Parathyroid Hormone 31.9 pg/mL (7.5-53.5)
[2024-12-25 17:43] LABS: 25-OH Vitamin D, Total 32.1 ng/mL (30-100)
== END 2024-12-24 23:59 | disposition home or self-care (01) ==
LOC: LAB.DROPOF 12-25 13:15
PROVIDERS: PCP Nurse Practitioner Family; Visit Provider Nurse Practitioner Family
DX: Z01.818 Encounter for other preprocedural examination (principal); E83.52 Hypercalcemia
CPT/HCPCS: 80053; 82306; 83970; 85025

== ENCOUNTER 2025-01-01 16:17 | Outpatient (CLI) | payer MEDICARE, OTHER, SELFPAY | END 2025-01-01 23:59 | disposition home or self-care (01) | LOC: LAB.DROPOF 16:17 | PROVIDERS: PCP Nurse Practitioner Family; Visit Provider Nurse Practitioner Family | DX: E83.52 Hypercalcemia (principal) | CPT/HCPCS: 82330 ==

== ENCOUNTER 2025-04-01 16:58 | Outpatient (CLI) | payer MEDICARE, OTHER, SELFPAY ==
[2025-04-01 17:13] LABS: Basophils % 0.7 % (0.1-2.0); Eosinophils # 0.2 Kmm3 (0.0-0.4); Eosinophils % 3.1 % (0.1-12.0); Hematocrit 41.2 % (37.0-47.0); Hemoglobin 13.7 g/dL (12.2-16.2); Immature Granulocytes # 0.01 10^3uL; Immature Granulocytes % 0.2 %; Lymphocytes # 1.9 K/mm3 (0.7-4.5); Lymphocytes % 32.4 % (10-50); Mean Corpuscular HGB Conc 33.3 g/dL (31.8-35.4); Mean Corpuscular Hemoglobin 30.8 pg (27.0-31.2); Mean Corpuscular Volume 92.6 fl (81-99); Mean Platelet Volume 11.1 fl (7.4-10.4); Monocytes # 0.4 K/mm3 (0.1-1.0); Monocytes % 7.5 % (1.7-9.3); Neutrophils # 3.3 K/mm3 (1.8-7.8); Neutrophils % 56.1 % (37.0-80.0); Nucleated Red Blood Cells # 0 10^3/uL; Nucleated Red Blood Cells % 0 %; Platelet Count 303 K/mm3 (142-424); Red Blood Count 4.45 M/mm3 (4.20-5.40); Red Cell Distribution Width 12.7 % (11.5-17.5); Red Cell Distribution Width-SD 42.9 fL; White Blood Count 5.8 K/mm3 (4.8-10.8)
[2025-04-01 17:34] LABS: Albumin Level 4.8 g/dl (3.5-5.0); Chloride 100 mmol/L (98-107)
[2025-04-01 17:35] LABS: Potassium 4.6 mmoL/L (3.5-5.1); Sodium 139 mmol/L (136-145)
[2025-04-01 17:37] LABS: Blood Urea Nitrogen 15 mg/dl (7-17); Estimated Glomerular Filt Rate 53 ml/min (>60); GFR (African American) 64 ML/MIN (>60)
[2025-04-01 17:38] LABS: Alanine Aminotransferase 18 U/L (12-78); Albumin/Globulin Ratio 1.4 (1.1-1.8); Alkaline Phosphatase 105 U/L (38-126); Anion Gap 15.6 mEq/L (5-15); Aspartate Amino Transferase 31 U/L (14-36); Bilirubin,Total 0.6 mg/dl (0.2-1.3); Calcium 9.9 mg/dl (8.4-10.2); Carbon Dioxide 28 mmol/L (22.0-30.0); Globulin 3.4 g/dL (1.3-3.2); Glucose 103 mg/dl (74-100); Total Protein,Serum 8.2 g/dl (6.3-8.2)
== END 2025-04-01 23:59 | disposition home or self-care (01) ==
LOC: LAB.DROPOF 16:58
PROVIDERS: PCP Nurse Practitioner Family; Visit Provider Nurse Practitioner Family
DX: Z01.818 Encounter for other preprocedural examination (principal); R53.83 Other fatigue; H26.9 Unspecified cataract; R41.3 Other amnesia
CPT/HCPCS: 80053; 85025

== ENCOUNTER 2025-04-03 17:59 | Emergency (ER) | payer MEDICARE, OTHER, SELFPAY ==
[2025-04-03 18:43] VITALS: BP 195/99; PULSE 97; RESP 16; TEMP 36.8; O2SAT 97; BMI 24.6
--- NOTE | 2025-04-03 18:54 | ED_ITS ---
<Statement entered by Janeen Urbina MD - 04/03/25 21:29> I was consulted by the YOVANY, and we discussed the complexity of the problems being addressed. I approved the treatment and management plan for this patient's care in the emergency department, thus performing a substantive portion of the medical decision making. Janeen Urbina MD, IVY, FACEP Discharge Plan Disposition Patient Disposition: Home, Self-Care Prescriptions Prescriptions: No Action psyllium husk [Metamucil] 0.4 gram capsule 0.4 g PO DAILY timolol maleate 0.5 % gel forming solution 1 drp Eye-Both DAILY cyclosporine [Restasis] 0.05 % dropperette 1 drp ophthalmic (eye) Q12H ropinirole 0.5 mg tablet 0.5 mg PO DAILY 90 Days Qty: 90 1RF omeprazole 20 mg capsule,delayed release(DR/EC) 20 mg PO DAILY 90 Days Qty: 90 3RF buspirone 10 mg tablet 10 mg PO BID 90 Days Qty: 180 2RF amlodipine-benazepril 5-10 mg capsule 1 cap PO DAILY 90 Days Qty: 90 1RF Referrals Follow up/Referrals: Cyndi Franklin APRN [Primary Care Provider, Medical] - See instructions Activity Restrictions/Add. Instructions Additional Instructions/Restrictions: Today you were evaluated in the emergency department for elevated blood pressure. Take an additional dose of your blood pressure medication in the evenings. Please keep your follow-up appointment with your PCP Tuesday. Return to the ED for any worsening of condition Clinical Impressions Clinical Impression: Hypertension Instructions Patient Instructions: High Blood Pressure Print Language Print Language: Azeri Discharge ED Provider: Janeen Urbina General Adult HPI General Chief complaint: Recheck/Abnormal Lab/Rx Stated complaint: high blood pressure Time Seen by Provider: 04/03/25 18:53 Mode of Arrival: Ambulatory Source of Information: Patient Description of Symptoms (Recalled from ER Triage Doc. by RN): PT presents to the Ed for evaluation of high BP. PT stated she went to the [facility] clinic today and was advised to come to the ED for a BP of 193/99. PT stated she has been compliant with BP meds. Denies blood thinners. Denies heachache, visual changes. PT stated her face just feels flushed. History of Present Illness HPI narrative: patient is an 80-year-old female PMHx hypertension and anxiety. She presents to the ED today for complaints of asymptomatic hypertension. Patient states she went to her doctor's office today just to have her blood pressure checked and they advised her it was high and sent her to the ED. Related Data Home Medications ?Medication ?Instructions ?Recorded ?Confirmed psyllium husk 0.4 gram capsule 0.4 g PO DAILY 01/22/20 04/01/25 (Metamucil) cyclosporine 0.05 % eye drops in a 1 drp ophthalmic (e ye) Q12H 06/29/23 04/01/25 dropperette (Restasis) timolol maleate 0.5 % eye gel 1 drp Eye-Both DAILY 04/01/25 forming solution Previous Rx's ?Medication ?Instructions ?Recorded ropinirole 0.5 mg tablet 0.5 mg PO DAILY . 90 days #9 0 tabs 11/14/24 omeprazole 20 mg capsule,delayed 20 mg PO DAILY 90 day s #90 caps 11/26/24 release buspirone 10 mg tablet 10 mg PO BID 90 days #180 ta bs 01/01/25 amlodipine 5 mg-benazepril 10 mg 1 cap PO DAILY 90 day s #90 caps 01/14/25 capsule Allergies Allergy/AdvReac Type Severity Reaction Status Date / Time nitrofurantoin (From Allergy Unknown Verified 04/01/25 14:52 MACRODANTIN) Sulfa (Sulfonamide Allergy Verified 04/01/25 14:52 Antibiotics) TETRACYCLINES Allergy Unknown Uncoded 04/01/25 14:52 [facility] Disclaimer: The information contained in this section may have been updated after the patient was seen, as this information can be updated by other users. Medical History Skin cancer of face Cardiac murmur Mitral regurgitation Gastroesophageal reflux disease Sinus tachycardia Abnormal EKG Anxiety Surgical History Status post surgical removal of malignant neoplasm of skin Social History Smoking Status: Never smoker alcohol intake: never substance use type: other current occupational status: other Travel in the last 8 weeks?: Inside the [place] household members: spouse housing: house current occupational exposures/hazards: No caffeine: Yes Have you lived/traveled outside US in past 30 days?: No Contact w/someone who lives/traveled outside US past 30 days?: No Exposure to someone with infectious disease in past 14 days?: No Do you have a fever (greater than 100.4 F or 38 C)?: No Have you tested positive for COVID-19?: No Exposed to someone with COVID-19 in past 14 days?: No Do you have a sore throat?: No Do you have a cough?: No Do you have any weakness?: No Do you have any diarrhea?: No Are you experiencing any unusual bleeding?: No Do you have any muscle aches/pain?: No Do you have any abdominal pain?: No Are you experiencing loss of taste or smell?: No Other Medical History Have you received the Flu Vaccine for this season: No Have you received the Pneumonia Vaccine: No ROS Obtained: Yes Systems reviewed as appropriate & no additional complaints except as documented Physical Exam General General appearance: alert and in no apparent distress Head Head exam: atraumatic and normocephalic Eye Eye exam: Present normal appearance and PERRL ENT ENT exam: Present normal exam Neck Neck exam: Present normal inspection Chest Chest inspection: Present normal inspection and symmetric chest wall rise; Absent tenderness Respiratory Respiratory exam: Present normal lung sounds bilaterally Cardiovascular Cardiovascular exam: Present regular rate Abdominal Exam Abdominal exam: Present soft and normal bowel sounds; Absent tenderness Extremities Exam Extremities exam: Present normal inspection and full ROM Back Exam Back exam: Present normal inspection and full ROM Neurological Exam Neurological exam: Present alert and oriented X3 Psychiatric Psychiatric exam: Present normal affect and normal mood Skin Skin exam: Present warm and dry Medical Decision Making Medical Records Screening: Per USPSTF and CDC recommendations, given the prevalence of disease in our region, it is our hospital?s policy to screen for HIV and viral Hepatitis for all patients aged 18 and over and those with ongoing risk factors. Cezar Inquiry Pt receiving controlled substance: No Vital Signs: 04/03/25 18:43 04/03/25 19:00 04/03/25 19:22 Temperature 98.3 F 98 F Temperature Source Oral Oral Pulse Rate 83 Pulse Rate [Right] 97 H 79 Respiratory Rate 16 20 Blood Pressure 193/95 H Blood Pressure [Right Arm] 195/99 H 193/95 H Blood Pressure Mean [Right Arm] 131 127 Blood Pressure Source [Right Arm] Automatic Cuff Blood Pressure Position [Right Arm] Sitting 02 Sat by Pulse Oximetry 97 97 98 Oxygen Delivery Method Room Air Room Air 04/03/25 19:30 Temperature Temperature Source Pulse Rate 79 Pulse Rate [Right] Respiratory Rate Blood Pressure 179/87 H Blood Pressure [Right Arm] Blood Pressure Mean [Right Arm] Blood Pressure Source [Right Arm] Blood Pressure Position [Right Arm] 02 Sat by Pulse Oximetry 98 Oxygen Delivery Method Orders (Tests/Meds): ED MEDICATIONS Discontinued Medications Generic Name Dose Route Start Last Admin Trade Name Lia PRN Reason Stop Dose Admin Amlodipine Besylate 5 mg 04/03/25 19:00 04/03/25 19:15 Amlodipine 5mg Tablet PO 04/03/25 19:01 5 mg ONCE ONE Administration Lisinopril 10 mg 04/03/25 19:01 04/03/25 19:15 Lisinopril 10mg Tablet PO 04/03/25 19:02 10 mg ONCE ONE Administration Medical Decision Narrative: In summary, patient is an 80-year-old female PMHx hypertension and anxiety. She presents to the ED today for complaints of asymptomatic hypertension. Patient states she went to her doctor's office today just to have her blood pressure checked and they advised her it was high and sent her to the ED. Patient states she has not had any symptoms associated with high blood pressure. She states that she has been on the same blood pressure medication for over 10 years now, amlodipine and benazepril. She takes this once a day in the morning. She states that she has increased anxiety and usually has elevated blood pressure when arriving at a hospital or doctors office. She denies fever, chills, body aches, headache, visual disturbances, posterior neck pain, chest pain, shortness of breath, abdominal pain, nausea, vomiting, diarrhea. Upon initial evaluation she is alert, oriented and cooperative. Her systolic is 195. Her physical exam is unremarkable. I discussed with patient she is experiencing asymptomatic hypertension & would most likely benefit from an increase in her blood pressure medication or an additional dose in the evening. While patient was in the ED, we administered a additional dose of her blood pressure medication, her systolic blood pressure reduced to 179. Patient states she remains asymptomatic. She has not medication at home to do a twice daily dosing until Tuesday when she sees her PCP. We discussed use of her medications. We discussed return precautions to the ED and patient verbalized understanding. Critical Care Critical Care Time Critical Care Time: No
--- NOTE | 2025-04-03 18:56 | PC.NURSE ---
Provider at bed side.
[2025-04-03 19:00] VITALS: BP 193/95; PULSE 83; O2SAT 97
[2025-04-03] MEDS: LISINOPRIL 10MG TABLET 10 MG PO (19:15)
[2025-04-03] MEDS: AMLODIPINE 5MG TABLET 5 MG PO (19:15)
[2025-04-03 19:22] VITALS: BP 193/95; PULSE 79; RESP 20; TEMP 36.6; O2SAT 98
[2025-04-03 19:30] VITALS: BP 179/87; PULSE 79; O2SAT 98
[2025-04-03 19:53] VITALS: BP 173/89; PULSE 75; RESP 18; TEMP 36.6; O2SAT 100
== END 2025-04-03 19:54 | disposition home or self-care (01) ==
PROVIDERS: Emergency Provider Student in an Organized Health Care Education/Training Program; PCP Nurse Practitioner Family
DX: I10 Essential (primary) hypertension (principal)
CPT/HCPCS: 99283

== ENCOUNTER 2025-04-08 14:14 | Outpatient (CLI) | payer MEDICARE, OTHER, SELFPAY ==
[2025-04-08 16:56] LABS: Magnesium 1.9 mg/dl (1.6-2.3)
[2025-04-08 17:27] LABS: Thyroid Stimulating Hormone 1.30 uIU/mL (0.465-4.68)
[2025-04-08 18:07] LABS: Ferritin 43.8 ng/ml (11.1-264)
[2025-04-08 18:54] LABS: Vitamin B12 683 pg/mL (239-931)
== END 2025-04-08 23:59 | disposition home or self-care (01) ==
LOC: LAB.DROPOF 14:14
PROVIDERS: PCP Nurse Practitioner Family; Visit Provider Nurse Practitioner Family
DX: I10 Essential (primary) hypertension (principal); E53.8 Deficiency of other specified B group vitamins; D50.9 Iron deficiency anemia, unspecified
CPT/HCPCS: 82607; 82728; 83735; 84443

== ENCOUNTER 2025-04-11 10:28 | Outpatient (CLI) | payer MEDICARE, OTHER, SELFPAY ==
--- NOTE | 2025-04-11 10:45 | CA_ITS ---
FINAL REPORT CLINICAL HISTORY: HTN FINDINGS: Aorta velocity: 108 cm/sec Right kidney: 8.7 cm. No evidence of hydronephrosis or mass. Right intrarenal RI: 0.60 Right renal artery velocity: 162 cm/sec. Right RAR (Renal artery-Aortic Ratio): 1.5 Left Kidney: 9.1 cm. No evidence of hydronephrosis or mass. Left intrarenal RI: 0.60 Left renal artery velocity: 135 cm/sec. Left RAR (Renal Artery-Aortic Ratio): 1.3 IMPRESSION: No evidence of significant renal artery stenosis. CT angiogram or postcontrast MR angiogram would be more sensitive for evaluation of possible renal artery stenosis. Reviewed, Interpreted and Dictated by Meliton Andrew MD Transcribed by Aurelia Kim Authenticated and [facility]
== END 2025-04-11 23:59 | disposition home or self-care (01) ==
LOC: RT 10:29
PROVIDERS: PCP Nurse Practitioner Family; Visit Provider Nurse Practitioner Family
DX: I10 Essential (primary) hypertension (principal)
CPT/HCPCS: 93976

== ENCOUNTER 2025-04-17 14:19 | Outpatient (CLI) | payer MEDICARE, OTHER, SELFPAY ==
--- NOTE | 2025-04-17 14:21 | XR_ITS ---
FINAL REPORT CLINICAL HISTORY: acute cough FINDINGS: There are underlying emphysematous changes. No acute pulmonary density is present. No significant pleural effusion. There is no pneumothorax. The heart is normal in size. The mediastinum is unremarkable. IMPRESSION: Emphysema without acute process. Reviewed, Interpreted and Dictated by Joe Camacho MD Transcribed by Samia Herbert Authenticated and [facility]
[2025-04-17 17:04] LABS: Coronavirus 19, PCR Not Detected (NotDetected); Influenza A, PCR Not Detected (NotDetected); Influenza B, PCR Not Detected (NotDetected)
== END 2025-04-17 23:59 | disposition home or self-care (01) ==
LOC: RAD 14:20
PROVIDERS: PCP Nurse Practitioner Family; Visit Provider Nurse Practitioner Family
DX: J43.9 Emphysema, unspecified (principal)
CPT/HCPCS: 71046; 87631

== ENCOUNTER 2025-04-28 11:01 | Emergency (ER) | payer MEDICARE, OTHER, SELFPAY ==
[2025-04-28] VITALS (7 sets, daily range): BP systolic 132–175; BP diastolic 72–143; PULSE 71–77; RESP 10–20; TEMP 36.6–36.9; O2SAT 96–100; BMI 24.0
--- NOTE | 2025-04-28 11:07 | ECG_ITS ---
APPROVED REPORT Exam: Resting ECG HR:76 bpm ECG Measurements Heart Rate 76 AXES KS 161 P 64 QRSd 90 QRS 41 QT 380 T 25 QTc 411 Conclusion SINUS RHYTHM WITH OCCASIONAL VENTRICULAR PREMATURE COMPLEXES POSSIBLE LEFT ATRIAL ENLARGEMENT [-0.1mV P-WAVE IN V1/V2] MODERATE ST DEPRESSION [0.05+ mV ST DEPRESSION] ABNORMAL ECG UNCONFIRMED REPORT Electronically signed by : FIDEL POWER, 04/30/2025 03:51:52
--- OUTSIDE RECORDS SUMMARY | 2025-04-28 11:10 | XMS_ITS | Clinical Summary ---
Author Organization [facility] Address [address] [place] [address] Care Team Providers Care Case Manager Name Role Phone Cyndi Franklin JAGRUTI Primary Care Provider [phone] Allergies Active Allergy Reactions Criticality Noted Date Comments Nitrofurantoin Macrocrystal Nausea And Vomiting Low 08/06/2016 Sulfa Antibiotics Itching Low 08/06/2016 Tetracyclines & Related Nausea And Vomiting Low 01/2016 Medications timolol (TIMOPTIC-XR) 0.5 % ophthalmic gel-forming Administer 0.5 drops to both eyes As Needed. 6 Active amLODIPine-vane zepril (LOTREL 5-10) 5-10 MG per capsule Take 1 capsule by mouth Daily. 6 Active Multiple Vitamins-Minera ls (MULTIVITAL) tablet Take 1 tablet by mouth Daily. Active Calcium Carb-Cholecalci ferol (CALCIUM + D3) 600-200 MG-UNIT tablet Take 600 mg by mouth 2 (Two) Times a Day. Active RESTASIS 0.05 % ophthalmic emulsion 7 Active polyethylene glycol (MIRALAX) packet Take 17 g by mouth Daily. Active psyllium (METAMUCIL) 58.6 % packet Take 1 packet by mouth Daily. Active busPIRone (BUSPAR) 10 MG tablet Take 1 tablet by mouth 2 (Two) Times a Day. 0 Active rOPINIRole (REQUIP) 0.5 MG tablet TAKE ONE TABLET BY MOUTH EVERY NIGHT ONE HOUR BEFORE BED 90 tablet 3 0 Active omeprazole (priLOSEC) 20 MG capsule 2 Active ondansetron (ZOFRAN) 4 MG tablet 2 Active Active Problems Problem Noted Date Diagnosed Date History of hysterectomy 11/14/2023 Overview (11/14/2023): History of TVH and BSO by Dr. Mays in 1995. Estrogen replacement until 2021. Encounter for screening mamm ogram for malignant neoplasm of breast 11/14/2023 Overview (11/14/2023): Mammogram 06/28/[address] [facility]. Screening for colon cancer 11/14/2023 Overview (11/14/2023): Colonoscopy 2017? Dr. Eli. Told may not need another colonoscopy. Left breast cysts April 2020 Mamm & U/S Tom clini c 04/23/2020 Slow transit constipation 08/14/2019 GERD (gastroesophageal reflux disease) 7 Osteopenia 08/06/2016 Overview (12/08/2023): Last DEXA scan 2017? DEXA 12/06/2023 with mild osteopenia On calcium and vitamin D. RLS (restless legs syndrome) 08/06/2016 Family History Medical History Relation Name Comments Aneurysm Mother Relation Name Status Comments Mother Social History Tobacco Use Types Packs/Day Years Used Date Smoking Tobacco: Never Smokeless Tobacco: Never Tobacco Cessation:Counseling Given: Not Answered Alcohol Use Standard Drinks/Week Comments No 0 (1 standard drink = 0.6 oz pur e alcohol) Abuse Screen Answer Date Recorded Unsafe at Home or Work/School Not on file Feels Threatened by Someone? Not on file 06/2023 Does Anyone Keep You from Co ntacting Others or Doint Things Outside the Home? Not on file 07/11/2023 Physical Sign of Abuse Present Not on file 1 Housing Stability Answer Date Recorded Current Living Arrangements Not on file 06/2023 Potentially Unsafe Housing Conditions Not on aure e 07/11/2023 Family and Community Support Answer Slava e Recorded Help with Day-to-Day Activities Not on file 07/11/2023 Lonely or Isolated Not on file 07/11/2023 Employment Answer Date Recorded Do you want help finding or keeping work or a mavis b? Not on file 07/11/2023 Disabilities Answer Date Recorded Concentrating, Remembering, or Making Decisions Difficulty Not on file 07/11/2023 Doing Errands Independently Difficulty Not on fi le 07/11/2023 Education Answer Date Recorded Help with school or training? Not on file Preferred Language Not on file 07/11/2023 Comments No Sex and Gender Information Value Date Recorded Sex Assigned at Not on file Legal Sex Female 10:20 AM EDT Gender Identity Not on file Sexual Orientation Not on file Last Filed Vital Signs Vital Sign Reading Time Taken Comments Blood Pressure 162/90 11/14/2023 3:34 PM EST Pulse - - Temperature - - Respiratory Rate 16 08/19/2022 1:10 PM EST Oxygen Saturation - - Inhaled Oxygen Concentration - - Weight 60.4 kg (133 lb 3.2 oz) 11/14/2023 3:34 P M EST Height 160 cm (5' 2.99 ) 11/14/2023 3:34 PM EST Body Mass Index 23.6 11/14/2023 3:34 PM EST Plan of Treatment Health Maintenance Due Date Last Done Comments TDAP/TD VACCINES (1 - Tdap) 1962 COLOGUARD 1988 COLON CANCER SCREENING [address] COLONOGRAPHY 1988 FECAL OCCULT BLOOD TEST 1988 FIT Testing (1 year) 1988 Pneumococcal Vaccine 50+ (1 of 1 - PCV) 1993 ANNUAL WELLNESS VISIT 07/12/2016 RSV Vaccine - Adults (1 - 1- dose 75+ series) 2018 ZOSTER VACCINE (2 of 2) 12/22/2018 10/27/2018 COVID-19 Vaccine (3 - 2023-2 5 season) 2024 12/03/2020, 11/05/2020 MAMMOGRAM 06/28/2025 06/28/2023, 05/03, 04/30/2021, Additional history exists INFLUENZA VACCINE 07/03/2025 10/06/2023, , 07/20/2018, Additional history exists DXA SCAN 12/05/2025 12/06/2023, 05/30/2007 COLONOSCOPY 08/09/2027 08/09/2017 COLORECTAL CANCER SCREENING 08/09/2027 Procedures Procedure Name Priority Date/Time Associated Diagnosis Comments SCANNED - DEXA 12/06/2023 SCANNED - MAMMO 06/28/2023 SCANNED - COLONOSCOPY 08/09/2017 from Last 3 Months or Most Recently Relevant to Health Maintenance Results * DEXA Scan (12/06/2023) Anatomical Region Laterality Modality Other us Sam De La Garza MD CHART REVIEW TABS Final Result * SCANNED - MAMMO (06/28/2023) Anatomical Region Laterality Modality Other us Siobhanjuan luis Becker APRN CHART REVIEW TABS F inal Result * SCANNED - COLONOSCOPY (08/09/2017) Meliton Mays MD CHART REVIEW TABS Final Resul t from Last 3 Months or Most Recently Relevant to Health Maintenance Insurance MEDICARE A & B Care Teams Case Manager Relationship Specialty Start Date End Date Cyndi Franklin APRN [address] [place] [address] PCP - General Internal Medicine 08/22/23
--- OUTSIDE RECORDS SUMMARY | 2025-04-28 11:10 | XMS_ITS | Encounter Summary ---
Author Organization [facility] Address [address] [place] [id number] Care Team Providers Care Criminal Intelligence Specialist Name Role Phone Cyndi Franklin APRN Primary Care Provider [phone] Reason for Visit * Reason Comments Med Refill Encounter Details Date Type Department Care Team (Late st Contact Info) Description 08/28/2021 Refill [facility] GYNECOLOGY [address] [facility] [address] [place] [phone] Kassie Reis APRN Social History Tobacco Use Types Packs/Day Years Used Date Smoking Tobacco: Never Smokeless Tobacco: Never Alcohol Use Standard Drinks/Week Comments No 0 (1 standard drink = 0.6 oz pur e alcohol) Comments No Sex and Gender Information Value Date Recorded Sex Assigned at Not on file Legal Sex Female 10:20 AM EDT Gender Identity Not on file Sexual Orientation Not on file documented as of this encounter Plan of Treatment Not on file documented as of this encounter Visit Diagnoses Not on filedocumented in this encounter Care Teams Criminal Intelligence Specialist Relationship Specialty Start Date End Date Cyndi Franklin APRN [address] [place] [address] PCP - General Internal Medicine 08/22/23 documented as of this encounter
--- NOTE | 2025-04-28 11:19 | CT_ITS ---
PROCEDURE INFORMATION: Exam: CTA Chest With Contrast Exam date and time: 04/28/2025 11:50 AM Age: 80 years old Clinical indication: Shortness of breath; Additional info: Subacute SOA and cough TECHNIQUE: Imaging protocol: Computed tomographic angiography of the chest with contrast. Exam focused on the arteries. 3D rendering (Not supervised by radiologist): MIP and/or 3D reconstructed images were created by the technologist. Radiation optimization: All CT scans at this facility use at least one of these dose optimization techniques: automated exposure control; mA and/or kV adjustment per patient size (includes targeted exams where dose is matched to clinical indication); or iterative reconstruction. Contrast material: ISOVUE; Contrast volume: 70 ml; Contrast route: INTRAVENOUS (IV); COMPARISON: CT CHEST W CON 05/26/2020 11:17 AM FINDINGS: Pulmonary arteries: Negative for acute pulmonary embolism. Aorta: Unremarkable. No aortic aneurysm. No aortic dissection. Lungs: Noncalcified pulmonary nodule within the lateral right upper lobe measures 3 mm (series 7, image 51). No focal consolidation. Mild bibasilar atelectasis. Pleural spaces: Biapical pleural thickening. No pleural effusion or pneumothorax. Heart: Unremarkable. No cardiomegaly. No pericardial effusion. Lymph nodes: Unremarkable. No enlarged lymph nodes. Bones/joints: Unremarkable. No acute fracture. Soft tissues: Unremarkable. Other findings: Previous granulomatous exposure. IMPRESSION: 1. Negative for acute pulmonary embolism. 2. 3 mm pulmonary nodule right upper lobe. Recommend follow-up as indicated. FLEISCHNER CRITERIA FOR MANAGEMENT OF PULMONARY NODULES Low Risk Patients: <6mm, no follow-up 6-8mm, 6-12 month follow-up >8mm, CT @ 3, months, PET/CT or biopsy High Risk Patients: <6mm, follow-up 12 months 6-8mm, 6-12 month then 18-24 month follow-up >8mm, same as for low risk References: Mitul H, et al. Guidelines for Management of Incidental Pulmonary Nodules Detected on CT Images: From the Fleischner Society 2017. Radiology. 2017;284(1):228-243.
--- NOTE | 2025-04-28 11:20 | ED_ITS ---
Discharge Plan Disposition Patient Disposition: Home, Self-Care Condition: Fair Prescriptions Prescriptions: No Action psyllium husk [Metamucil] 0.4 gram capsule 0.4 g PO DAILY timolol maleate 0.5 % gel forming solution 1 drp Eye-Both DAILY cyclosporine [Restasis] 0.05 % dropperette 1 drp ophthalmic (eye) Q12H amlodipine-benazepril 5-10 mg capsule 1 cap PO BID Qty: 180 1RF metoprolol succinate [Toprol XL] 25 mg tablet extended release 24 hr 25 mg PO DAILY Qty: 30 5RF Eliquis 2.5 mg tablet 2.5 mg PO BID Qty: 60 5RF omeprazole 20 mg capsule,delayed release(DR/EC) 20 mg PO DAILY 90 Days Qty: 90 3RF buspirone 10 mg tablet 10 mg PO BID 90 Days Qty: 180 2RF ropinirole 0.5 mg tablet See Rx Instructions .ROUTE .COMPLEX Qty: 90 0RF Dose Instruction: TAKE 1 TABLET BY MOUTH DAILY Rx Instructions: TAKE 1 TABLET BY MOUTH DAILY albuterol sulfate [Ventolin HFA] 90 mcg/actuation HFA aerosol inhaler 2 puff inhalation Q4-6H PRN (Reason: shortness of breath or wheezing) Qty: 6.7 1RF Referrals Follow up/Referrals: Cyndi Franklin APRN [Primary Care Provider, Medical] - See instructions Activity Restrictions/Add. Instructions Additional Instructions/Restrictions: At this time it was felt you are safe to be discharged home. If new or worsening symptoms please do not hesitate to return the emergency department. Please call schedule appoint with Dr. Becerra as discussed. Please maintain your appointment with Dr. Morales. Clinical Impressions Clinical Impression: Acute dyspnea, Shortness of breath, Dyspnea, Incidental pulmonary nodule Print Language Print Language: Croatian Discharge ED Provider: Venkata English HPI General Chief Complaint: Shortness of Breath/Dyspnea Stated Complaint: SOA Time Seen by Provider: 04/28/25 11:02 Mode of Arrival: Ambulatory Source of Information: Patient and Relative Description of Symptoms (Recalled from ER Triage Doc. by RN): Patient presents to ED for shortness of breath since last night. Patient reports productive cough for about a week. Reports she sees cardiology for CHF. Denies CP. History of Present Illness HPI narrative: Patient is a 80-year-old female with past medical history of hypertension, atrial fibrillation recently started on multiple medications and anticoagulation, intermittent use of albuterol for shortness of breath, not on diuretics who presents emergency department for evaluation of shortness of breath cough, generally feeling unwell. She has been dealing with cough for multiple weeks and has been evaluated by PCP and Dr. Morales. Over the last 24 hours her shortness of breath has gotten worse, her cough is not particularly bad as of late. No chest pain no abdominal pain no other acute complaints at this time. Please note that above description of symptoms, in this electronic medical record under categorization of recalled from ER triage doctor by RN are reflective of an initial nursing assessment, however, is not reflective of my full history and physical exam that was personally taken and clarified. Consequentially, this preceding description of symptoms, which may include the patient's categorized chief complaint in the EMR, do not reflect my personal clinical impression, and the ultimate description of history of present illness and patient stated complaints should be deferred to this section of the note. Unless stated otherwise or congruent with this section of the note, additional signs, symptoms, or incongruence should be interpreted as inaccurate with my clinical impression. Related Data Home Medications ?Medication ?Instructions ?Recorded ?Confirmed psyllium husk 0.4 gram capsule 0.4 g PO DAILY 01/22/20 04/22/25 (Metamucil) cyclosporine 0.05 % eye drops in a 1 drp ophthalmic (e ye) Q12H 06/29/23 04/22/25 dropperette (Restasis) timolol maleate 0.5 % eye gel 1 drp Eye-Both DAILY 04/22/25 forming solution Previous Rx's ?Medication ?Instructions ?Recorded omeprazole 20 mg capsule,delayed 20 mg PO DAILY 90 day s #90 caps 11/26/24 release buspirone 10 mg tablet 10 mg PO BID 90 days #180 ta bs 01/01/25 amlodipine 5 mg-benazepril 10 mg 1 cap PO BID #180 cap s 04/08/25 capsule apixaban 2.5 mg tablet (Eliquis) 2.5 mg PO BID #60 tab s 04/08/25 metoprolol succinate 25 mg 25 mg PO DAILY #30 tabs 04/26 tablet,extended release 24 hr (Toprol XL) ropinirole 0.5 mg tablet See Rx Instructions .Route 0 04/11/25 .COMPLEX #90 tabs albuterol sulfate 90 mcg/actuation 2 puff inhalation Q 4-6H PRN 04/18/25 aerosol inhaler (Ventolin HFA) shortness of breath or wheezing #6.7 grams Allergies Allergy/AdvReac Type Severity Reaction Status Date / Time nitrofurantoin (From Allergy Unknown Unknown Verified 04/28/25 11:18 MACRODANTIN) allergy reaction Sulfa (Sulfonamide Allergy Unknown Verified 04/28/25 11:18 Antibiotics) allergy reaction TETRACYCLINES Allergy Unknown Unknown Uncoded 04/28/25 11:18 allergy reaction PFSH PFSH Disclaimer: The information contained in this section may have been updated after the patient was seen, as this information can be updated by other users. Medical History (Updated 04/28/25 @ 15:07 by Venkata English MD) Other persistent atrial fibrillation Skin cancer of face Cardiac murmur Mitral regurgitation Gastroesophageal reflux disease Sinus tachycardia Abnormal EKG Anxiety Surgical History History of cataract surgery Status post surgical removal of malignant neoplasm of skin Family History (Updated 04/28/25 @ 11:11 by Olinda Pizarro RN) Other No significant family history Social History Smoking Status: Never smoker alcohol intake: never substance use type: other current occupational status: other Travel in the last 8 weeks?: Inside the [place] household members: spouse housing: house current occupational exposures/hazards: No caffeine: Yes Have you lived/traveled outside US in past 30 days?: No Contact w/someone who lives/traveled outside US past 30 days?: No Exposure to someone with infectious disease in past 14 days?: No Do you have a fever (greater than 100.4 F or 38 C)?: No Have you tested positive for COVID-19?: No Exposed to someone with COVID-19 in past 14 days?: No Do you have a sore throat?: No Do you have a cough?: No Do you have any weakness?: No Do you have any diarrhea?: No Are you experiencing any unusual bleeding?: No Do you have any muscle aches/pain?: No Do you have any abdominal pain?: No Are you experiencing loss of taste or smell?: No Other Medical History Have you received the Flu Vaccine for this season: No Have you received the Pneumonia Vaccine: No ROS Obtained: Yes Systems reviewed as appropriate & no additional complaints except as documented Physical Exam General General appearance: alert and in no apparent distress Head Head exam: atraumatic and normocephalic Eye Eye exam: Present PERRL and EOMI ENT ENT exam: Present mucous membranes moist Neck Neck exam: Present normal inspection Chest Chest inspection: Present normal inspection and symmetric chest wall rise Respiratory Respiratory exam: Present normal lung sounds bilaterally; Absent respiratory distress or wheezes Cardiovascular Cardiovascular exam: Present regular rate and normal rhythm Abdominal Exam Abdominal exam: Present soft; Absent tenderness Extremities Exam Extremities exam: Present normal inspection and other (Minimal pitting edema about the ankles bilaterally) Neurological Exam Neurological exam: Present alert Psychiatric Psychiatric exam: Present normal affect Skin Skin exam: Present warm and dry HEART Score HEART Score HEART Score assessment performed?: Yes History (anamnesis): Slightly suspicious ECG: Normal Age: >65 years Risk factors: 1-2 risk factors Troponin: </= normal limit HEART Score: 3 Critical Care Critical Care Time Critical Care Time: No Medical Decision Making Cezar Inquiry Pt receiving controlled substance: No Vital Signs Vital Signs: 04/28/25 11:05 04/28/25 11:07 04/28/25 11:10 Temperature 97.9 F Temperature Source Oral Pulse Rate 71 74 Pulse Rate [Right] 77 Respiratory Rate 20 Blood Pressure 169/143 H 175/93 H Blood Pressure [Right Arm] 175/93 H Blood Pressure Mean Blood Pressure Mean [Right Arm] 120 Blood Pressure Source [Right Arm] Automatic Cuff Blood Pressure Position [Right Arm] Sitting 02 Sat by Pulse Oximetry 97 100 98 Oxygen Delivery Method Room Air Room Air Room Air 04/28/25 11:10 04/28/25 11:30 04/28/25 12:30 Temperature 97.9 F Temperature Source Oral Pulse Rate 77 77 74 Pulse Rate [Right] Respiratory Rate 20 20 14 Blood Pressure 175/93 H 156/79 H 159/79 H Blood Pressure [Right Arm] Blood Pressure Mean 100 Blood Pressure Mean [Right Arm] Blood Pressure Source [Right Arm] Blood Pressure Position [Right Arm] 02 Sat by Pulse Oximetry 98 99 98 Oxygen Delivery Method Room Air Room Air 04/28/25 13:00 04/28/25 14:26 Temperature 98.4 F Temperature Source Oral Pulse Rate 76 72 Pulse Rate [Right] Respiratory Rate 10 L 18 Blood Pressure 146/72 H 132/76 Blood Pressure [Right Arm] Blood Pressure Mean Blood Pressure Mean [Right Arm] Blood Pressure Source [Right Arm] Blood Pressure Position [Right Arm] 02 Sat by Pulse Oximetry 98 Oxygen Delivery Method Room Air Room Air Lab Data Labs: Lab Results 04/28/25 11:15: WBC 11.0 H, RBC 4.64, Hgb 14.3, Hct 42.2, MCV 90.9, MCH 30.8, MCHC 33.9, RDW 12.6, Plt Count 358, MPV 10.0, Neut % (Auto) 78.5, Lymph % (Auto) 14.2, Meeker % (Auto) 4.8, Eos % (Auto) 1.6, Baso % (Auto) 0.4, Neut # (Auto) 8.6 H, Lymph # (Auto) 1.6, Meeker # (Auto) 0.5, Eos # (Auto) 0.2, Baso # (Auto) 0.0, VBG pH 7.41, VBG pCO2 42.0, VBG pO2 62.6 H, VBG HCO3 26.3, VBG Total CO2 27.6 H, VBG O2 Saturation 92.4 H, VBG Base Excess 1.5, VBG Lactic Acid 1.3, Sodium 135 L , Potassium 3.9, Chloride 100, Carbon Dioxide 24, Anion Gap 14.9, BUN 9, Creatinine 0.90, Estimated Creat Clear 42, Estimated GFR 60, Est GFR ( Amer) 73, Glucose 132 H, Calcium 10.2, Magnesium 1.8, Total Bilirubin 0.7, AST 54 H, ALT 19, Alkaline Phosphatase 132 H, Troponin I < 0.01, NT-Pro-B Natriuret Pep 373, Total Protein 9.1 H, Albumin 4.9, Globulin 4.2 H, Albumin/Globulin Ratio 1.2 04/28/25 11:25: Chlamy pneumoniae PCR Not detected, Adenovirus (PCR) Not detected, B. pertussis DNA (PCR) Not detected, Coronavirus OC43 (PCR) Not detected, Coronavirus HKU1 (PCR) Not detected, Coronavirus 229E (PCR) Not detected, SARS-CoV-2 (PCR) Not detected, Coronavirus NL63 (PCR) Not detected, Human Metapneumovir PCR Not detected, Influenza A (H1) PCR Not detected, Influ A (H1N1/09) PCR Not detected, Influenza A (H3) PCR Not detected, Influenza Type A (PCR) Not detected, Influenza Type B (PCR) Not detected, M. pneumoniae (PCR) Not detected, Parainfluenza 1 (PCR) Not detected, Parainfluenza 2 (PCR) Not detected, Parainfluenza 3 (PCR) Not detected, Parainfluenza 4 (PCR) Not detected, RSV (PCR) Not detected, Entero/Rhino (PCR) Not detected 04/28/25 11:15 04/28/25 11:15 Response Orders (Tests/Meds): ED MEDICATIONS Discontinued Medications Generic Name Dose Route Start Last Admin Trade Name Freq PRN Reason Stop Dose Admin Iopamidol 70 ml 04/28/25 11:48 04/28/25 11:50 Iopamidol-370 (76%);100ml Bottle IV 04/28/25 11:49 70 ml ONCE ONE Administration Sodium Chloride 10 ml 04/28/25 11:48 04/28/25 11:50 Sodium Chloride 0.9% 10ml Syr (Rad Only) IV 04/28/25 11:49 10 ml ONCE ONE Administration Sodium Chloride 50 ml 04/28/25 11:48 04/28/25 11:50 0.9 % Sodium Chloride 50 Ml Vial IV 04/28/25 11:49 50 ml ONCE ONE Administration ORDERS Category Date Time Status CT angio chest PE protocol Stat Cat Scan 04/28/25 11:19 Completed POCUS Point of Care (ER Only) Stat Exams 04/28/25 11:13 Completed BNP [NT Pro Brain Natriuretic Pep.] Stat Lab 04/28/25 11:15 Completed CBC w/Auto Diff [Complete Blood Count Auto Diff] Stat Lab 04/28/25 11:15 Completed CMP [Comprehensive Metabolic Panel] Stat Lab 04/28/25 11:15 Completed Full Resp Panel w/COVID ([facility]) Routine Lab 04/28/25 11:25 Completed MG [Magnesium] Stat Lab 04/28/25 11:15 Completed Trop I [Troponin I] Stat Lab 04/28/25 11:15 Completed VBG [Venous Blood Gas] Stat RT 04/28/25 11:15 Completed ECG Data Tracing #1: ECG Narrative: Independently interpreted by me rate of 76, rhythm is regular, axis is normal, no ST elevation in anatomical contiguous leads, QTc 411. Sinus rhythm with isolated PVC. MDM Narrative Medical Decision Narrative: In summary patient is a 80-year-old female past medical history described above presents emergency department for evaluation of acute on chronic subacute shortness of breath and subacute cough. Patient is hemodynamically stable nontoxic-appearing upon arrival, afebrile. Differential diagnosis includes viral syndrome postinfectious cough, pulmonary embolism the procedure to anticoagulation initiation, atypical ACS, pneumonia, among others. Workup we conducted with hematologic labs, EKG, CT angio chest pulmonary embolism protocol, full viral respiratory panel given the subacute nature of this. Patient is clear to auscultation largely in both lung howe so bronchodilators will be deferred at this point. Afebrile no significant tachycardia sepsis bolus fluids were considered but will be deferred. Initial workup reviewed by me, hematologic labs are largely nonactionable no significant leukocytosis no transfusable anemia compensated acid-base status no critical electrolyte abnormality or GARRY initial troponin undetectably low. CT chest informally interpreted by me no dense lobar opacities or saddle embolism. Full respiratory panel negative, CTA chest no acute pulmonary embolism 3 mm pulmonary nodule right upper lobe which will be followed on an outpatient basis.
[2025-04-28 11:27] LABS: Hematocrit 42.2 % (37.0-47.0); Hemoglobin 14.3 g/dL (12.2-16.2); Immature Granulocytes % 0.5 %; Mean Corpuscular HGB Conc 33.9 g/dL (31.8-35.4); Mean Corpuscular Hemoglobin 30.8 pg (27.0-31.2); Mean Corpuscular Volume 90.9 fl (81-99); Nucleated Red Blood Cells % 0 %; Platelet Count 358 K/mm3 (142-424); Red Blood Count 4.64 M/mm3 (4.20-5.40); Red Cell Distribution Width-SD 41.5 fL; White Blood Count 11.0 K/mm3 (4.8-10.8)
[2025-04-28 11:27] LABS: Adenovirus,PCR Not Detected (NotDetected); Chlamydophila Pneumoniae, PCR Not Detected (NotDetected); Coronavirus 19, PCR Not Detected (NotDetected); Coronovirus HKU1,PCR Not Detected (NotDetected); Influenza A, PCR Not Detected (NotDetected); Influenza AH1, 2009 Not Detected (NotDetected); Influenza AH1, PCR Not Detected (NotDetected); Influenza AH3,PCR Not Detected (NotDetected); Influenza B, PCR Not Detected (NotDetected); Mycoplasma Pneumoniae, PCR Not Detected (NotDetected); Parainfluenza 1, PCR Not Detected (NotDetected); Parainfluenza 2, PCR Not Detected (NotDetected); Parainfluenza 3, PCR Not Detected (NotDetected); Parainfluenza 4, PCR Not Detected (NotDetected)
[2025-04-28 11:34] LABS: VBG HCO3 26.3 mmol/L (23-30); VBG PCO2 42.0 mmol/L (35-51); VBG PH 7.41 mmol/L (7.31-7.41); VBG PO2 62.6 mmol/L (28-40)
[2025-04-28 11:35] LABS: Lactate Venous 1.3 mmol/L (0.4-2.0)
[2025-04-28 11:38] LABS: Albumin Level 4.9 g/dl (3.5-5.0); Chloride 100 mmol/L (98-107); Potassium 3.9 mmoL/L (3.5-5.1); Sodium 135 mmol/L (136-145)
[2025-04-28 11:41] LABS: Alanine Aminotransferase 19 U/L (12-78); Albumin/Globulin Ratio 1.2 (1.1-1.8); Alkaline Phosphatase 132 U/L (38-126); Anion Gap 14.9 mEq/L (5-15); Aspartate Amino Transferase 54 U/L (14-36); Bilirubin,Total 0.7 mg/dl (0.2-1.3); Blood Urea Nitrogen 9 mg/dl (7-17); Calcium 10.2 mg/dl (8.4-10.2); Carbon Dioxide 24 mmol/L (22.0-30.0); Creatinine Clearance Estimated 42 mL/min (50-200); Creatinine,Serum 0.90 mg/dl (0.52-1.04); Estimated Glomerular Filt Rate 60 ml/min (>60); GFR (African American) 73 ML/MIN (>60); Globulin 4.2 g/dL (1.3-3.2); Glucose 132 mg/dl (74-100); Total Protein,Serum 9.1 g/dl (6.3-8.2)
--- NOTE | 2025-04-28 11:44 | PC.NURSE ---
pt to RAD @ this time
[2025-04-28 11:46] LABS: Magnesium 1.8 mg/dl (1.6-2.3)
[2025-04-28] MEDS: SODIUM CHLORIDE 0.9% 10ML SYR (RAD ONLY) 10 ML IV (11:50)
[2025-04-28] MEDS: IOPAMIDOL-370 (76%);100ML BOTTLE 70 ML IV (11:50)
[2025-04-28] MEDS: 0.9 % SODIUM CHLORIDE 50 ML VIAL IV (11:50)
[2025-04-28 11:54] LABS: Troponin I < 0.01 ng/ml (0.00-0.034)
[2025-04-28 13:59] LABS: NT Pro Brain Natriuretic Pep. 373 pg/mL (0-450)
--- NOTE | 2025-04-28 15:09 | PC.NURSE ---
Called patient at request of Dr. English and relayed message that she has pulmonary nodule that will just need follow up with pulmonology. Patient was referred for follow up to pulmonology and should be able to address nodule at follow up appointment. Patient verbalized understanding.
== END 2025-04-28 14:35 | disposition home or self-care (01) ==
PROVIDERS: Emergency Provider Emergency Medicine; PCP Nurse Practitioner Family
DX: R06.02 Shortness of breath (principal); R91.1 Solitary pulmonary nodule; I10 Essential (primary) hypertension; Z86.79 Personal history of other diseases of the circulatory system
CPT/HCPCS: 0223U; 71275; 80053; 82803; 83735; 83880; 84484; 85025; 87633; 93005; 99285; Q9967

== ENCOUNTER 2025-04-29 09:43 | Outpatient (CLI) | payer MEDICARE, OTHER, SELFPAY ==
--- OUTSIDE RECORDS SUMMARY | 2025-04-29 09:54 | XMS_ITS | Clinical Summary ---
Author Organization [facility] Address [address] [place] [address] Care Team Providers Care Robotics Application Engineer Name Role Phone Cyndi Franklin JAGRUTI Primary Care Provider [phone] Allergies Active Allergy Reactions Criticality Noted Date [...] 11/14/2023 Overview (11/14/2023): Mammogram 06/28/2023 was negative. [facility]. Screening for colon cancer 11/14/2023 Overview [...] Insurance MEDICARE A & B Care Teams Robotics Application Engineer Relationship Specialty Start Date End Date Cyndi Franklin APRN [address] [place] [address] PCP - General Internal Medicine 08/22/23
--- OUTSIDE RECORDS SUMMARY | 2025-04-29 09:54 | XMS_ITS | Encounter Summary ---
Author Organization [facility] Address [address] [place] [id number] Care Team Providers Care Farm Machinery Assembler Name Role Phone Cyndi Franklin APRN Primary Care Provider [phone] Reason for Visit * Reason Comments Med Refill Encounter Details Date Type Department Care Team (Late st Contact Info) Description 08/28/2021 Refill [facility] GYN[facility]OLOGY [address] [facility] [address] [place] [phone] Kassie Reis APRN Social History Tobacco Use [...] on filedocumented in this encounter Care Teams Farm Machinery Assembler Relationship Specialty Start Date End Date Cyndi Franklin APRN [address] [place] [address] PCP - General Internal Medicine 08/22/23 documented as of this encounter
--- NOTE | 2025-04-29 10:00 | US_ITS ---
PROCEDURE INFORMATION: Exam: US Left Breast, Complete Exam date and time: 04/29/2025 9:51 AM Age: 80 years old Clinical indication: Follow-up for sonographic evaluation of asymmetry indicated in 08/26/2024 mammogram as noted in the 11/23/2024 report. Spot compressions questioned asymmetry performed 11/23/2024 reported as resolved mammographically. TECHNIQUE: Imaging protocol: Complete ultrasound of all four quadrants of the left breast and the retroareolar regions, including ultrasound of the axilla when performed. COMPARISON: MG MM DIG MAMM DX UNILAT LT CAD 11/23/2024 9:30 A US BREAST LT COMPLETE 10/16/2024 2:16 PM MG 08/21/2024 Mammogram from 10/16/2023 not available, though report is provided. FINDINGS: ULTRASOUND: Breast ultrasound findings: Sonographic images of the left breast including the retroareolar region, all 4 quadrants demonstrates scattered sub cm cysts and oval hypoechoic masses having the appearance complicated cysts, similar appearance to prior studies, at 7 o'clock 2 cm from the nipple measuring 0.4 x 0.5 x 0.2 cm which measured 0.5 x 0.6 x 0.2 cm on 10/16/2024. At 12 o'clock, slightly lobulated, somewhat vertically oriented hypoechoic avascular mass measuring 0.5 x 0.2 x 0.3 cm, new or newly demonstrated. No axillary adenopathy demonstrated. IMPRESSION: Indeterminate sonographic mass on the left at 12 o'clock, recommend ultrasound-guided biopsy. Please refer to prior reports (10/16/2024 and 11/23/2024) - 10/16/2024 recommends stereotactic biopsy for indeterminate calcifications in the left upper inner quadrant. Also 10/16/2024 mammogram recommends six-month follow-up left diagnostic mammogram which is due at this time and patient should be recalled for left mammogram prior to the biopsies. ASSESSMENT: BI-RADS Category 4: Suspicious.
== END 2025-04-29 23:59 | disposition home or self-care (01) ==
LOC: RAD 09:44
PROVIDERS: PCP Nurse Practitioner Family; Visit Provider Nurse Practitioner Family
DX: R92.8 Other abnormal and inconclusive findings on diagnostic imaging of breast (principal)
CPT/HCPCS: 76641

== ENCOUNTER 2025-05-08 11:39 | Outpatient (CLI) | payer MEDICARE, OTHER, SELFPAY ==
--- OUTSIDE RECORDS SUMMARY | 2025-05-08 11:42 | XMS_ITS | Clinical Summary ---
Author Organization [facility] Address [address] [place] [address] Care Team Providers Care Shoe Repairman Name Role Phone Cyndi Franklin JAGRUTI Primary Care Provider [phone] Allergies Active Allergy Reactions Criticality Noted Date [...] Overview (11/14/2023): Mammogram 06/28/2023 was negative. [facility]. Screening for colon cancer 11/14/2023 Overview (11/14/2023): [...] Insurance MEDICARE A & B Care Teams Shoe Repairman Relationship Specialty Start Date End Date Cyndi Franklin APRN [address] [place] [address] PCP - General Internal Medicine 08/22/23
--- OUTSIDE RECORDS SUMMARY | 2025-05-08 11:42 | XMS_ITS | Encounter Summary ---
[facility] Organization [facility] Address [address] [place] [id number] Care Team Providers Care Chief Lifestyle Officer Name Role Phone Cyndi Franklin APRN Primary Care Provider [phone] Reason for Visit * Reason Comments Med Refill Encounter Details Date Type Department Care Team (Late st Contact Info) Description 08/28/2021 Refill [facility] GYNECOLOGY [address] [facility] [address] [place] [phone] Kassie Reis APRN Social History Tobacco Use [...] on filedocumented in this encounter Care Teams Chief Lifestyle Officer Relationship Specialty Start Date End Date Cyndi Franklin APRN [address] [place] [address] PCP - General Internal Medicine 08/22/23 documented as of this encounter
--- NOTE | 2025-05-08 12:14 | XR_ITS ---
FINAL REPORT CLINICAL HISTORY: liz COMPARISON: 04/17/2025 FINDINGS: 2 views of the chest were obtained . The heart is normal in size. The mediastinum is within normal limits. There are mild chronic interstitial changes. The lungs are otherwise clear. There is no pneumothorax. Osseous structures are unremarkable. IMPRESSION: No acute cardiopulmonary process. Reviewed, Interpreted and Dictated by Meliton Andrew MD Transcribed by Samia Herbert Authenticated and [facility]
[2025-05-08 12:41] LABS: D-Dimer 0.59 ug/mL (0.0-0.5)
[2025-05-08 12:54] LABS: Albumin Level 4.8 g/dl (3.5-5.0); Chloride 95 mmol/L (98-107); Potassium 4.3 mmoL/L (3.5-5.1); Sodium 132 mmol/L (136-145)
[2025-05-08 12:56] LABS: Alanine Aminotransferase 19 U/L (12-78); Aspartate Amino Transferase 28 U/L (14-36); Blood Urea Nitrogen 18 mg/dl (7-17); Creatinine,Serum 1.50 mg/dl (0.52-1.04); Estimated Glomerular Filt Rate 33 ml/min (>60); GFR (African American) 40 ML/MIN (>60)
[2025-05-08 12:57] LABS: Albumin/Globulin Ratio 1.5 (1.1-1.8); Alkaline Phosphatase 110 U/L (38-126); Anion Gap 16.3 mEq/L (5-15); Bilirubin,Total 0.8 mg/dl (0.2-1.3); Calcium 10.4 mg/dl (8.4-10.2); Carbon Dioxide 25 mmol/L (22.0-30.0); Globulin 3.1 g/dL (1.3-3.2); Glucose 135 mg/dl (74-100); Magnesium 1.8 mg/dl (1.6-2.3); Total Protein,Serum 7.9 g/dl (6.3-8.2)
[2025-05-08 13:08] LABS: NT Pro Brain Natriuretic Pep. 213 pg/mL (0-450)
== END 2025-05-08 23:59 | disposition home or self-care (01) ==
LOC: LAB 11:40
PROVIDERS: PCP Nurse Practitioner Family; Visit Provider Nurse Practitioner Family
DX: I48.91 Unspecified atrial fibrillation (principal); R06.00 Dyspnea, unspecified
CPT/HCPCS: 36415; 71046; 80053; 83735; 83880; 85378

== ENCOUNTER 2025-05-10 09:53 | Outpatient (CLI) | payer MEDICARE, OTHER, SELFPAY ==
--- OUTSIDE RECORDS SUMMARY | 2025-05-10 09:56 | XMS_ITS | Encounter Summary ---
Author [facility] Address [address] [place] [id number] Care Team Providers Care Song And Dance Performer Name Role Phone Cyndi Franklin APRN Primary Care Provider [phone] Reason for Visit * Reason Comments Med Refill Encounter Details Date Type Department Care Team (Late st Contact Info) Description 08/28/2021 Refill [facility] GYNECOLOGY [address] [facility] [address] [place] [phone] Kassie Reis APRN Social History Tobacco Use [...] on filedocumented in this encounter Care Teams Song And Dance Performer Relationship Specialty Start Date End Date Cyndi Franklin APRN [address] [place] [address] PCP - General Internal Medicine 08/22/23 documented as of this encounter
--- OUTSIDE RECORDS SUMMARY | 2025-05-10 09:56 | XMS_ITS | Clinical Summary ---
Author Organization [facility] Address [address] [place] [address] Care Team Providers Care Sweatband Drummer Name Role Phone Cyndi Franklin JAGRUTI Primary Care Provider [phone] Allergies Active Allergy Reactions Criticality Noted Date [...] 11/14/2023 Overview (11/14/2023): Mammogram 06/28/2023 was negative. [facility]. Screening for colon cancer [...] Insurance MEDICARE A & B Care Teams Sweatband Drummer Relationship Specialty Start Date End Date Cyndi Franklin APRN [address] [place] [address] PCP - General Internal Medicine 08/22/23
[2025-05-10] MEDS: ALBUTEROL 0.083% 2.5 MG/3 ML NEB IH (10:07)
--- NOTE | 2025-05-10 10:08 | PC.NURSE ---
Pre and Post Spirometry completed without incident. Albuterol 0.083% given via HHN, per written protocol, Pt tolerated tx well.
== END 2025-05-10 23:59 | disposition home or self-care (01) ==
LOC: RT 09:54
PROVIDERS: PCP Nurse Practitioner Family; Visit Provider Nurse Practitioner Family
DX: R06.02 Shortness of breath (principal)
CPT/HCPCS: 94010

== ENCOUNTER 2025-05-20 15:23 | Outpatient (CLI) | payer MEDICARE, OTHER, SELFPAY ==
[2025-05-20 20:29] LABS: Alanine Aminotransferase 19 U/L (12-78); Albumin Level 4.3 g/dl (3.5-5.0); Albumin/Globulin Ratio 1.5 (1.1-1.8); Alkaline Phosphatase 106 U/L (38-126); Anion Gap 16.3 mEq/L (5-15); Aspartate Amino Transferase 28 U/L (14-36); Bilirubin,Total 0.7 mg/dl (0.2-1.3); Blood Urea Nitrogen 8 mg/dl (7-17); Calcium 9.7 mg/dl (8.4-10.2); Carbon Dioxide 25 mmol/L (22.0-30.0); Chloride 96 mmol/L (98-107); Creatinine,Serum 1.00 mg/dl (0.52-1.04); Estimated Glomerular Filt Rate 53 ml/min (>60); GFR (African American) 64 ML/MIN (>60); Globulin 2.8 g/dL (1.3-3.2); Glucose 131 mg/dl (74-100); Potassium 4.3 mmoL/L (3.5-5.1); Sodium 133 mmol/L (136-145); Total Protein,Serum 7.1 g/dl (6.3-8.2)
--- OUTSIDE RECORDS SUMMARY | 2025-05-22 09:52 | XMS_ITS | Encounter Summary ---
[facility] Address [address] [place] [id number] Care Team Providers Care And Rescue Fire Fighter Crash Fire Name Role Phone Cyndi Franklin APRN Primary Care Provider [phone] Reason for Visit * Reason Comments Med Refill Encounter Details Date Type Department Care Team (Late st Contact Info) Description 08/28/2021 Refill [facility] [address] [facility] [address] [place] [phone] Kassie Reis APRN Social History Tobacco Use [...] on filedocumented in this encounter Care Teams And Rescue Fire Fighter [employer] Relationship Specialty Start Date End Date Cyndi Franklin APRN [address] [place] [address] PCP - General Internal Medicine 08/22/23 documented as of this encounter
--- OUTSIDE RECORDS SUMMARY | 2025-05-22 09:52 | XMS_ITS | Clinical Summary ---
Author Organization [facility] Address [address] [place] [address] Care Team Providers Care Family Centered Specialist Name Role Phone Cyndi Franklin JAGRUTI Primary Care Provider [phone] Allergies Active Allergy Reactions Criticality Noted Date [...] 11/14/2023 Overview (11/14/2023): Mammogram 06/28/2023 was negative. [facility]. Screening for colon cancer 11/14/2023 Overview (11/14/2023): [...] Insurance MEDICARE A & B Care Teams Family Centered Specialist Relationship Specialty Start Date End Date Cyndi Franklin APRN [address] [place] [address] PCP - General Internal Medicine 08/22/23
== END 2025-05-20 23:59 | disposition home or self-care (01) ==
LOC: LAB.DROPOF 05-22 09:40
PROVIDERS: PCP Nurse Practitioner Family; Visit Provider Nurse Practitioner Family
DX: N28.9 Disorder of kidney and ureter, unspecified (principal)
CPT/HCPCS: 80053

== ENCOUNTER 2025-05-22 07:42 | Outpatient (CLI) | payer MEDICARE, OTHER, SELFPAY ==
--- NOTE | 2025-05-22 | CA_ITS ---
APPROVED REPORT Exam: Pharmacologic Technologist: Pallavi Segovia Ht: 5 ft 3 in Wt: 136 lbs BSA: 1.64 m2 HR: 70 bpm BP: 154/76 mmHg Stress Test Details Test: Lexiscan HR Resting HR: 70 bpm Max Heart Rate (APMHR): 138.360702 bpm Max HR Achieved: 85 bpm Target HR (85% APMHR): 117.886855 bpm % of APMHR: 61.59 Recovery HR: 76 bpm BP Resting BP: 154.0/76.0 mmHg Max BP: 154.0/76.0 mmHg Recovery BP: 148.0/73.0 mmHg ECG Resting ECG: Sinus rhythm, PAC Stress ECG Conclusion Symptoms: None Arrhythmias/Ectopy: PAC, PVC, ventricular trigeminy ST-T Changes: < than 1.[address] segment changes Conclusion: Non-diagnostic ECG - Lexiscan. Electronically signed by : Nancy Morales MD 05/23/2025 13:16:22
--- OUTSIDE RECORDS SUMMARY | 2025-05-22 07:44 | XMS_ITS | Encounter Summary ---
[facility] Address [address] [place] [id number] Care Team Providers Care Ui Developer With Angular J[employer] Name Role Phone Cyndi Franklin APRN Primary Care Provider [phone] Reason for Visit * Reason Comments Med Refill Encounter Details Date Type Department Care Team (Late st Contact Info) Description 08/28/2021 Refill [facility] [address] [facility] [address] [place] [phone] Kassie Reis APRN Social History Tobacco Use [...] on filedocumented in this encounter Care Teams Ui Developer With Angular J[employer] Relationship Specialty Start Date End Date Cyndi Franklin APRN [address] [place] [address] PCP - General Internal Medicine 08/22/23 documented as of this encounter
--- OUTSIDE RECORDS SUMMARY | 2025-05-22 07:44 | XMS_ITS | Clinical Summary ---
Author Organization [facility] Address [address] [place] [address] Care Team Providers Care C2 Tactical Analysis Technician Name Role Phone Cyndi Franklin JAGRUTI Primary Care Provider [phone] Allergies Active Allergy Reactions Criticality Noted Date [...] 11/14/2023 Overview (11/14/2023): Mammogram 06/28/2023 was negative. [facility]. Screening for colon cancer 11/14/2023 Overview [...] Insurance MEDICARE A & B Care Teams C2 Tactical Analysis Technician Relationship Specialty Start Date End Date Cyndi Franklin APRN [address] [place] [address] PCP - General Internal Medicine 08/22/23
--- NOTE | 2025-05-22 08:00 | NM_ITS ---
APPROVED REPORT Exam: Nuclear Stress Test Indication: soa..palpitaitons..fatigue Patient Location: Outpatient Stress Tech: Pallavi Segovia OR Tech:Joyce Carrillo WILLIAMS RT(R)(N) Ht: 5 ft 3 in Wt: 136 lbs Bra Size: 32b HR: 69 bpm BP: 154/76 mmHg BSA: 1.64 m2 TID: 0.93 BMI: 24.0 History: soa..palpitaitons..fatigue Procedure: Patient received 0.4 mg of intravenous Lexiscan, resting heart rate 69 bpm, resting blood pressure 154/76 mmHg, with Lexiscan maximum heart rate achieved was 83 bpm which is 85 % of the maximum predicted heart rate and blood pressure was 148/72 mmHg. With Lexiscan, patient denied any complaint of chest pain. Cardiac Stress and Resting SPECT Images: Cardiac Stress and Resting SPECT images were obtained using technetium 99m Myoview 31.0 mCi stress and 10.98 mCi at rest. Resting and stress imaging in supine and prone positions demonstrate no evidence of fixed or reversible perfusion defects. Gated imaging demonstrates normal global and regional LV systolic function. LVEF is calculated at > 75%. Conclusion: No evidence of fixed or reversible perfusion defects. Gated imaging demonstrates normal global and regional LV systolic function. LVEF is calculated at > 75%. Electronically signed by : Nancy Morales MD 05/22/2025 13:16:49
[2025-05-22] MEDS: ISOTOPE MYOVIEW (PER STUDY) 1 DOSE IV (09:57)
[2025-05-22] MEDS: SODIUM CHLORIDE 0.9% 10ML SYR (RAD ONLY) 10 ML IV ×2 (09:57)
--- NOTE | 2025-05-22 10:15 | CA_ITS ---
APPROVED REPORT EXAM: Comprehensive 2D, Doppler, and color-flow Echocardiogram Lens Hardener: COLTON Cornejo, RVS Ht: 5 ft 3 in Wt: 126lbs BSA: 1.59 BP: 138/76 mmHg Indications: abn EKG, MR, SVT Echo Enhancing Agent Comments: TDS: limited windows throughout exam 2D Dimensions Left Atrium 3.01 cm LA Volume 24.30 mL LA Volume Index 14.90 mL/m2 (M/F) 16-34 M-Mode Dimensions RVDd 1.85 cm (0.9-2.6) LA Diam 3.31 cm (1.9-4.0) LVDd 3.98 cm (3.5-5.7) LVDs 2.69 cm (3.5-5.7) IVSd 0.66 cm (0.6-1.1) PWd 0.63 cm (0.6-1.1) EF (Teich) 61.30% EPSs 0.35 cm FS 32.40% EDV (Teich) 69.20 mL TAPSE 2.52 (<1.7) ESV (Teich) 26.80 mL LV Diastology E Decel Time 253 (160-240 msec) E/A Ratio 0.78 MED A' 12.90 cm/s LAT A' 13.80 cm/s Mitral Valve MV A Velocity 111.0 (40-130 cm/s) E/A Ratio 0.78 Tricuspid Valve TR P. Velocity 217.00 cm/s RAP Estimate 10.00 mmHg RVSP 28.80 mmHg Left Ventricle The left ventricle is normal size. Left ventricular systolic function is normal. The left ventricular ejection fraction is within the normal range. There is increasedleft ventricular wall thickness. There is normal LV segmental wall motion. Transmitral Doppler flow pattern suggests impaired LV relaxation. LVEF is 55% Right Ventricle The right ventricle is mildly dilated. The right ventricular systolic function is normal. Atria Left atrium is mildly dilated. Right atrium is mildly dilated. There is no color Doppler evidence of interatrial shunt. Aortic Valve The aortic valve is mildly thickened. There is no hemodynamically significant aortic valvular stenosis. Trace aortic regurgitation is present. Mitral Valve The mitral valve is normal in structure. No evidence of mitral valve stenosis. Mild mitral regurgitation is present. Tricuspid Valve The tricuspid valve leaflets are thin and pliable. Mild tricuspid regurgitation. RVSP is 20-25 mmHg. Pulmonic Valve The pulmonary valve is grossly normal in structure. Trace pulmonic valve regurgitation is present. Great Vessels The aortic root is normal in size. IVC is normal in size and collapses >50% with inspiration. Pericardium There is no pericardial effusion. Conclusion Normal biventricular systolic function. Mild RV dilation. Mild biatrial dilation. Mild MR, mild TR. Electronically signed by : Nancy Morales MD 05/22/2025 14:39:46
[2025-05-22 16:14] LABS: Hematocrit 43.5 % (37.0-47.0); Hemoglobin 15.1 g/dL (12.2-16.2); Immature Granulocytes % 0.6 %; Mean Corpuscular HGB Conc 34.7 g/dL (31.8-35.4); Mean Corpuscular Hemoglobin 30.6 pg (27.0-31.2); Mean Corpuscular Volume 88.1 fl (81-99); Nucleated Red Blood Cells % 0 %; Platelet Count 348 K/mm3 (142-424); Red Blood Count 4.94 M/mm3 (4.20-5.40); Red Cell Distribution Width-SD 39.2 fL; White Blood Count 10.2 K/mm3 (4.8-10.8)
[2025-05-22 16:37] LABS: Albumin Level 4.8 g/dl (3.5-5.0); Chloride 94 mmol/L (98-107); Sodium 132 mmol/L (136-145)
[2025-05-22 16:38] LABS: Potassium 4.5 mmoL/L (3.5-5.1)
[2025-05-22 16:40] LABS: Alanine Aminotransferase 22 U/L (12-78); Alkaline Phosphatase 112 U/L (38-126); Anion Gap 17.5 mEq/L (5-15); Aspartate Amino Transferase 32 U/L (14-36); Bilirubin,Direct 0.3 mg/dl (0.0-0.4); Bilirubin,Indirect 0.6 mg/dL (0.0-0.9); Bilirubin,Total 0.9 mg/dl (0.2-1.3); Bilirubin,Unconjugated 0.6 mg/dL (0.0-1.1); Blood Urea Nitrogen 10 mg/dl (7-17); Carbon Dioxide 25 mmol/L (22.0-30.0); Creatinine,Serum 1.00 mg/dl (0.52-1.04); Estimated Glomerular Filt Rate 53 ml/min (>60); GFR (African American) 64 ML/MIN (>60); Total Protein,Serum 8.1 g/dl (6.3-8.2); Triglycerides 102 mg/dl (30-150)
[2025-05-22 16:41] LABS: Calcium 10.4 mg/dl (8.4-10.2); Cholesterol 188 mg/dl (140-200); Glucose 128 mg/dl (74-100); HDL Cholesterol 75 mg/dl (40-60); Magnesium 1.4 mg/dl (1.6-2.3)
[2025-05-22 17:00] LABS: Free T4 (Free Thyroxine) 1.59 ng/dl (0.78-2.19)
[2025-05-22 17:13] LABS: Thyroid Stimulating Hormone 1.38 uIU/mL (0.465-4.68)
== END 2025-05-22 23:59 | disposition home or self-care (01) ==
PROVIDERS: PCP Nurse Practitioner Family; Visit Provider Internal Medicine
DX: R06.02 Shortness of breath (principal); I10 Essential (primary) hypertension; I34.0 Nonrheumatic mitral (valve) insufficiency; I48.19 Other persistent atrial fibrillation; R00.2 Palpitations; I48.91 Unspecified atrial fibrillation; I07.1 Rheumatic tricuspid insufficiency; R53.83 Other fatigue; I49.1 Atrial premature depolarization
CPT/HCPCS: 36415; 78452; 80048; 80061; 80076; 83735; 84439; 84443; 85025; 93016; 93017; 93018; 93270; 93306; A9502; J2785

== ENCOUNTER 2025-07-24 13:52 | Outpatient (CLI) | payer MEDICARE, OTHER, SELFPAY ==
[2025-07-24 18:00] LABS: Alanine Aminotransferase 15 U/L (12-78); Albumin Level 4.0 g/dl (3.5-5.0); Albumin/Globulin Ratio 1.4 (1.1-1.8); Alkaline Phosphatase 120 U/L (38-126); Anion Gap 16.9 mEq/L (5-15); Aspartate Amino Transferase 26 U/L (14-36); Bilirubin,Total 0.6 mg/dl (0.2-1.3); Blood Urea Nitrogen 19 mg/dl (7-17); Calcium 9.6 mg/dl (8.4-10.2); Carbon Dioxide 27 mmol/L (22.0-30.0); Chloride 101 mmol/L (98-107); Creatinine,Serum 1.20 mg/dl (0.52-1.04); Estimated Glomerular Filt Rate 43 ml/min (>60); GFR (African American) 52 ML/MIN (>60); Globulin 2.9 g/dL (1.3-3.2); Glucose 87 mg/dl (74-100); Magnesium 1.9 mg/dl (1.6-2.3); Potassium 4.9 mmoL/L (3.5-5.1); Sodium 140 mmol/L (136-145); Total Protein,Serum 6.9 g/dl (6.3-8.2)
== END 2025-07-24 23:59 | disposition home or self-care (01) ==
LOC: LAB.DROPOF 07-25 12:31
PROVIDERS: PCP Nurse Practitioner Family; Visit Provider Nurse Practitioner Family
DX: E83.42 Hypomagnesemia (principal); I10 Essential (primary) hypertension
CPT/HCPCS: 80053; 83735